=== PATIENT | female | born 1965 | race Caucasian/White ===

== ENCOUNTER 2017-04-23 13:06 | Emergency (ER) | payer BC, MEDICAID ==
[2017-04-23 13:11] VITALS: BP 161/97
[2017-04-23 14:15] LABS: Hematocrit 41 % (35-47); Mean Corpuscular HGB Conc 34 g/dl (31-36); Mean Corpuscular Hemoglobin 30 pg (27-31); Mean Corpuscular Volume 88 fL (80-97); Mean Platelet Volume 8 um3 (7.4-10.4); Red Blood Count 4.63 10^6/ul (4.0-5.4); Red Cell Distribution Width 13 % (10.5-15)
[2017-04-23 14:21] LABS: Urine Bacteria Absent (Absent); Urine Bilirubin Negative (Negative); Urine Glucose Negative (Negative); Urine Nitrite Negative (Negative)
[2017-04-23 14:31] LABS: ALT 17 U/L (7-52); AST 17 U/L (13-39); Albumin 4.3 g/dL (3.2-5.2); Alkaline Phosphatase 63 U/L (34-104); Anion Gap 6 mmol/L (2-11); BUN/Creatinine Ratio 22.2 (8-20); Blood Urea Nitrogen 20 mg/dL (6-24); CO2 Carbon Dioxide 27 mmol/L (22-32); Calcium 9.2 mg/dL (8.6-10.3); Chloride 108 mmol/L (101-111); EGFR African American 84.2 (>60); EGFR Non-African American 65.5 (>60); Glucose 95 mg/dL (70-100); Potassium 3.9 mmol/L (3.5-5.0); Sodium 141 mmol/L (133-145); Total Protein 7.3 g/dL (6.4-8.9)
[2017-04-23 14:37] LABS: Benzodiazepine Urine Screen None Detected (None Detect)
[2017-04-23 14:47] LABS: Acetaminophen < 15 mcg/mL; Alcohol < 10 mg/dL (<10); Salicylate < 2.50 mg/dL (<30)
[2017-04-23 15:04] LABS: TSH (Thyroid Stimulating Horm) 3.04 mcIU/mL (0.34-5.60)
[2017-04-23] MEDS ORDERED: oxyCODONE/Acetamin 5/325 MG* TAB PO ONE (17:41)
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
== END 2017-04-23 19:58 | disposition home or self-care (01) ==
LOC: ED 13:06
DX: F22 Delusional disorders (principal); F41.9 Anxiety disorder, unspecified; R45.5 Hostility
CPT/HCPCS: 36415; 80053; 80307; 80320; 80329; 81003; 81015; 84443; 85025; 87086; 99283; A9270-GY; G0480

== ENCOUNTER 2017-08-22 08:02 | Emergency (ER) | payer BC, MEDICAID ==
[2017-08-22 08:21] VITALS: BP 136/93
--- NOTE | 2017-08-22 08:55 | UC ---
FLU HPI - HPI Summary HPI Summary: Coughing chest congestion and burning,sinus pain fatigue, fevers and chills - History of Current Complaint Chief Complaint: UCGeneralIllness Stated Complaint: CHEST CONGESTION Time Seen by Provider: 08/22/17 08:49 Hx Obtained From: Patient Hx Last Menstrual Period: 3 MONTHS AGO - PERIMENOPAUSAL ?: No Onset/Duration: Sudden Onset, Lasting Days - 3 Severity Currently: Moderate Severity Initially: Moderate Pain Intensity: 7 Pain Scale Used: 0-10 Numeric Associated Signs & Symptoms: Positive: Fever, Myalgia, Cough, Nasal Congestion, Headache - Allergy/Home Medications Allergies/Adverse Reactions: Allergies Allergy/AdvReac Type Severity Reaction Status Date / Time bee venom protein (honey bee) Allergy Swelling Verified 08/22/17 08:12 PMH/Surg Hx/FS Hx/Imm Hx Previously Healthy: Yes - Surgical History Surgical History: Yes Surgery Procedure, Year, and Place: 1994 Tubal Ligation. Ovarian Cyst Removal - Family History Known Family History: Positive: Hypertension, Diabetes - Social History Occupation: Employed Full-time Lives: With Family Alcohol Use: Rare Substance Use Type: None Smoking Status (MU): Never Smoked Tobacco - Immunization History Most Recent Tetanus Shot: 5 YEARS AGO Review of Systems Constitutional: Chills, Fatigue Skin: Negative Eyes: Negative ENT: Nasal Discharge, Sinus Congestion, Sinus Pain/Tenderness Respiratory: Cough Cardiovascular: Chest Pain - burning with inspiration Gastrointestinal: Negative Genitourinary: Negative Motor: Negative Neurovascular: Negative Musculoskeletal: Arthralgia, Myalgia Neurological: Negative Psychological: Negative Is Patient Immunocompromised?: No All Other Systems Reviewed And Are Negative: Yes Physical Exam Triage Information Reviewed: Yes Appearance: Well-Nourished, Ill-Appearing, Pain Distress Vital Signs: Initial Vital Signs Temp 98.4 F 08/22/17 08:14 Pulse 75 08/22/17 08:14 Resp 20 08/22/17 08:14 BP 136/93 08/22/17 08:14 Pulse Ox 100 08/22/17 08:14 Vital Signs Reviewed: Yes Eye Exam: Normal Eyes: Positive: Conjunctiva Clear ENT Exam: Normal ENT: Positive: Normal ENT inspection, Hearing grossly normal, Pharynx normal, Nasal congestion, Nasal drainage, TMs normal, Uvula midline. Negative: Tonsillar swelling, Tonsillar exudate, Trismus, Muffled voice, Hoarse voice, Dental tenderness, Sinus tenderness Dental Exam: Normal Neck exam: Normal Neck: Positive: Supple, Nontender, No Lymphadenopathy Respiratory Exam: Normal Respiratory: Positive: Chest non-tender, Lungs clear, Normal breath sounds, No respiratory distress, No accessory muscle use Cardiovascular Exam: Normal Cardiovascular: Positive: RRR, No Murmur, Pulses Normal, Brisk Capillary Refill Musculoskeletal Exam: Normal Musculoskeletal: Positive: Strength Intact, ROM Intact, No Edema Neurological Exam: Normal Neurological: Positive: Alert, Muscle Tone Normal Psychological Exam: Normal Skin Exam: Normal Diagnostics - Laboratory Diagnostic Studies Completed/Ordered: Influenza A?B (-), Patient refused CXR - EKG Cardiac Rate: NL Cardiac Rhythm: Sinus: Normal Ectopy: None Flu Course/Dx - Course Course Of Treatment: feeling some relief with neb, d/c with home nebs, prednisone rest and follow with pcp - Differential Dx/Diagnosis Provider Diagnoses: Acute viral Bronchitis Discharge - Discharge Plan Condition: Stable Disposition: HOME Prescriptions: predniSONE TAB* [Deltasone TAB*] 40 mg PO DAILY 4 Days #8 tab Patient Education Materials: Upper Respiratory Infection (ED), Acute Bronchitis (ED), Viral Syndrome (ED) Forms: *Work Release Referrals: Angelic Salazar MD [Primary Care Provider] - If Needed
[2017-08-22] MEDS ORDERED: Albuterol/Ipratropium NEB.SOL* Albuterol 2.5 MG/Ipratropium 0.5 MG 3 ML INH ONE (09:06)
[2017-08-22] MEDS ORDERED: predniSONE TAB* 20 MG PO ONE (09:07)
[2017-08-22] MEDS ORDERED: Acetaminophen TAB* 325 MG PO ONE (09:07)
== END 2017-08-22 10:06 | disposition home or self-care (01) ==
LOC: UCEAST 08:02
DX: J20.8 Acute bronchitis due to other specified organisms (principal)
CPT/HCPCS: 87502; 93005; 99212; A9270-GY; G0463; J7512

== ENCOUNTER 2018-07-11 07:13 | Emergency (ER) | payer BC, MEDICAID ==
--- OUTSIDE RECORDS SUMMARY | 2018-07-11 07:17 | XMS REPORT ---
:1965 Author Organization [facility] Address [address] [place] [address] Care Team Providers Name Role Phone Sandee Davila Unavailable Unavailable PROBLEMS Type Condition ICD9-CM Code [id number] Onset Condition SNOMED Code Code Dates Status Problem Acute vaginitis N76.0 Active 53182401 Problem Pelvic and perineal R10.2 Active 991001124 pain Problem Family history of Z80.0 Active 374521675 malignant neoplasm of digestive organs Problem Postmenopausal N95.2 Active 15086373 atrophic vaginitis Problem Lichen sclerosus et L90.0 Active 91327973 atrophicus Problem Dermatitis, L30.9 Active 117237374 unspecified Problem Other fatigue R53.83 Active 31006785 Problem Family history of Z80.41 Active 151512047 malignant neoplasm of ovary Problem Subacute and N76.3 Active 855000893 chronic vulvitis Problem 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, unspecified ALLERGIES Substance Reaction Event Type Date Status clindamycin hives Drug Allergy Jun, Active ENCOUNTERS Encounter Location Date Diagnosis [facility] [address] Oct, [place] [id number] [facility] Oct, [place] [id number] [facility] [address] [place] [address] Jun, Lichen sclerosus et OBGYN [address] [place], atrophicus L90.0 ; [place] [id number] Dermatitis, unspecified L30.9 and Postmenopausal atrophic vaginitis N95.2 [facility] [address] Jun, [place] [id number] [place] [facility] [address] May, [place] [id number] [place] [facility] [address] [place] May, Subacute and chronic OBGYN [address] [place] [address], vulvitis N76.3 and Pelvic [place] [id number] and perineal pain R10.2 [place] [facility] [address] May, [place] [id number] [place] [facility] [address] [place] May, Subacute and chronic OBGYN [address] [place] [address], vulvitis N76.3 [place] [id number] [place] [facility] [address] May, [place] [id number] [place] [facility] [address] May, [place] [id number] [place] [facility] [address] Apr, Family history of OBGYN [facility], malignant neoplasm [place] [id number] ovary Z80.41 ; Pelvic and perineal pain R10.2 and Subacute and chronic vulvitis N76.3 [facility] [address] Apr, Family history of OBGYN [facility], malignant neoplasm [place] [id number] ovary Z80.41 and Pelvic and perineal pain R10.2 [place] [facility] [address] Apr, [place] [id number] [place] [facility] [address] Apr, [place] [id number] [place] [facility] [address] Apr, [place] [id number] [place] [facility] [address] [place] [address] [place] Apr, Encounter for OBGYN Road [address] [place] [address], gynecological examination [place] [id number] (general) (routine) without abnormal findings Z01.419 ; Encounter for screening mammogram for malignant neoplasm of breast Z12.31 ; Encounter for screening for malignant neoplasm of colon Z12.11 ; Family history of malignant neoplasm of digestive organs Z80.0 ; Postmenopausal atrophic vaginitis N95.2 ; Acute vaginitis N76.0 ; Other fatigue R53.83 ; Family history of malignant neoplasm of ovary Z80.41 ; Family history of ischemic heart disease and other diseases of the circulatory system Z82.49 ; Anogenital herpesviral infection, unspecified A60.9 and Pelvic and perineal pain R10.2 [place] [facility] [address] Sep, Postmenopausal atrophic OBGYN [facility], vaginitis N95.2 [place] [id number] [place] [facility] [address] [place] [address] Dec, Other specified [facility] [address] [place] [address], noninflammatory disorders [place] [id number] of vagina N89.8 and Acute vaginitis N76.0 [place] [facility] [address] Oct, [place] [id number] [place] [facility] Oct, Other specified [facility], noninflammatory disorders [place] [id number] of vagina N89.8 ; Acute vaginitis N76.0 and Postmenopausal atrophic vaginitis N95.2 [place] [facility] [address] [place] [address] [facility] Jan, Encounter for [facility] [address] [place], gynecological examination [place] [id number] (general) (routine) without abnormal findings Z01.419 ; Encounter for screening mammogram for malignant neoplasm of breast Z12.31 ; Encounter for screening for malignant neoplasm of colon Z12.11 ; Family history of malignant neoplasm of digestive organs Z80.0 ; Postmenopausal atrophic vaginitis N95.2 and Acute vaginitis N76.0 [place] [facility] [address] Dec, [place] [id number] [place] [facility] 103 Dec, Other specified [facility], noninflammatory disorders [place] [id number] of vagina N89.8 and Postmenopausal atrophic vaginitis N95.[address] Dec, [facility] [address] [place] [id number] [facility] [address] May, Acute vaginitis N76.0 [place] [id number] [address] Jan, 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10 [place] [id number] [address] Dec, Vulvovaginitis 616.10 ; [facility] [address] [place] [address], FAMILY HX-GI MALIGNANCY [place] [id number] V16.0 ; STD Screen V74.5 ; PELVIC PAIN 625.9 and Menopausal symptoms 627.2 [facility] Aug, [place] [id number] [place] [facility] [address] Aug, [place] [id number] [place] [facility] 103 Aug, Ovarian cyst NOS 620.2 [place] [id number] [place] [facility] [address] Jul, [place] [id number] [facility] Jul, [place] [id number] [facility] [address] Jul, [place] [id number] [facility] Jun, [place] [id number] [facility] Jun, Ovarian cyst NOS 620.2 and OBGYN [facility], VULVAR LESION 624.9 [place] [id number] IMMUNIZATIONS No Known Immunizations SOCIAL HISTORY Never Assessed REASON FOR REFERRAL FUNCTIONAL STATUS PLAN OF CARE Activity Details Follow Up 1 year vulvar colpo Reason: VITAL SIGNS Height 66.5 in 2018-06-22 Weight 140 lbs 2018-06-22 BMI 22.26 kg/m2 2018-06-22 Blood pressure systolic 128 mm Hg 2018-06-22 Blood pressure diastolic 76 mm Hg 2018-06-22 MEDICATIONS Medication Instructions Dosage Frequency Start End Date Duration Status Date Calcium 600+D orally qd 1 tab(s) 24h 30 day(s) Active 600 mg-200 units Estroven orally QD 1 cap 24h Active betamethasone- applied topically 1 deborah 12h 12 Oct, 7 days Active clotrimazole 2 times a day 2018 topical 0.05%-1% ibuprofen 600 orally every 6 1 tab(s) 6h Active mg hours Valtrex 500 mg orally once a day 1 tab(s) 24h 12 Apr, 30 day(s) Active 2018 Estrace intravaginally two 1 g 12 Jun, 30 days Active Vaginal 0.1 to three times a 2018 mg/g week Percocet 5/325 orally every 6 1 tab(s) 6h 30 Nov, 3 days Active 325 mg-5 mg hours 2018 clobetasol applied topically 1 deborah 11 Jun, 30 day(s) Active topical 0.05% to vulva Once 2018 weekly. Use twice a day for up to three weeks when symptomatic lidocaine applied topically 1 deborah 8h 30 May, 5 day(s) Active topical 5% 3 times a day 2018 Valtrex 500 mg orally PRN 1tab(s) Active PROCEDURES No Known procedures RESULTS No Results REASON FOR VISIT Colpo f/u Insurance Providers [facility] Health Member Patient Patient Patient Patient Patient Subscriber Subscriber Subscriber Group Insurance Plan Plan Plan Plan ID Relationship Address Phone Name Date of ID Name Date of No Type Insurance Insurance Insurance Coverage to Subscriber Address Phone Name Dates [employer] [phone] [employer] [place] [id number] Blue [id number] Blue e 7 Cross/Blue [place] Cross/Blue [facility] [id number] Shield [facility] Medicaid [phone] Medicaid self [place] [id number] [facility] [id number] [facility] [address] [facility] 0 United [phone] United self [place] [id number] [facility] [id number] [place] [phone] [facility] MEDICAL (GENERAL) HISTORY Type Description Date Medical History HSV Medical History migraines Surgical History ovarian cystectomy 2008 Surgical History ETOP x 2 Surgical History tubal ligation 1995 Hospitalization History see above Hospitalization History childbirth
--- OUTSIDE RECORDS SUMMARY | 2018-07-11 07:17 | XMS REPORT ---
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, unspecified Problem Pelvic and perineal R10.2 Active 843406339 pain Problem Family history of Z80.0 Active 729482381 malignant neoplasm of digestive organs Problem Other fatigue R53.83 Active 32758054 Problem Family history of Z80.41 Active 849648910 malignant neoplasm of ovary ALLERGIES No Information ENCOUNTERS Encounter Location Date Diagnosis [facility] [address] Oct, OBGYN [place], [place] [id number] [facility] [address] Oct, OBGYN [place], [place] [id number] [facility] Jun, [facility] [address] [place], [place] [id number] [facility] [address] Jun, OBGYN [place] [id number] [facility] [address] May, OBGYN [place] [id number] [facility] [address] May, Subacute and chronic [address]BGYN [address] [place] [address], vulvitis N76.3 and Pelvic [place] [id number] and perineal pain R10.2 [place] [facility] [address] May, OBGYN [place], [place] [id number] [place] [facility] [address] May, Subacute and chronic OBGYN [address] [place] [address], vulvitis N76.3 [place] [id number] [place] [facility] [address] May, OBGYN [place] [id number] [facility] [facility] [address] May, OBGYN [place] [id number] [place] [facility] [address] Apr, Family history of OBGYN [facility], malignant neoplasm [place] [id number] ovary Z80.41 ; Pelvic and perineal pain R10.2 and Subacute and chronic vulvitis N76.3 [place] [facility] [address] Apr, Family history of OBGYN [facility], malignant neoplasm [place] [id number] ovary Z80.41 and Pelvic and perineal pain R10.2 [place] [facility] [address] Apr, OBGYN [place] [id number] [facility] [facility] [address] Apr, OBGYN [place] [id number] [facility] [address] Apr, OBG[place] [id number] [place] [facility] [address] Apr, Encounter for OBGYN Road [address] [place], gynecological examination [place] [id number] (general) (routine) without abnormal findings Z01.419 ; [...] A60.9 and Pelvic and perineal pain R10.2 [facility] 13 Sep, 2017 Postmenopausal atrophic [facility], vaginitis N95.2 [place] [id number] [facility] Dec, Other specified [facility] [address] [place] [address], noninflammatory disorders [place] [id number] of vagina N89.8 and Acute vaginitis N76.[address] [facility] [address] Oct, [place], [place] [id number] [facility] Oct, Other specified [facility], noninflammatory disorders [place] [id number] of vagina N89.8 ; Acute vaginitis N76.0 and Postmenopausal atrophic vaginitis N95.[address] [facility] Jan, Encounter for [facility] [address], gynecological examination [place] [id number] (general) (routine) without abnormal findings Z01.419 ; Encounter for screening mammogram for malignant neoplasm of breast Z12.31 ; Encounter for screening for malignant neoplasm of colon Z12.11 ; Family history of malignant neoplasm of digestive organs Z80.0 ; Postmenopausal atrophic vaginitis N95.2 and Acute vaginitis N76.0 [facility] Dec, [place], [place] [id number] [facility] Dec, Other specified [facility], noninflammatory disorders [place] [id number] of vagina N89.8 and Postmenopausal atrophic vaginitis N95.[address] [facility] Dec, [facility] [address] [id number] 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0 ; STD Screen V74.5 ; PELVIC PAIN 625.9 and Menopausal symptoms 627.2 [place] [facility] Aug, [place] [id number] [place] [facility] 103 15 Aug, 2011 [place] [id number] [place] [facility] 103 Aug, Ovarian cyst NOS 620.2 [place] [id number] [place] [facility] 103 Jul, [place] [id number] [place] [facility] [address] Jul, [place] [id number] [place] [facility] [address] Jul, [place] [id number] [place] [facility] Jun, [place] [id number] [facility] 103 13 Jun, 2011 Ovarian cyst NOS 620.2 and OBGYN [facility], VULVAR LESION 624.9 [place] [id number] IMMUNIZATIONS No Known Immunizations SOCIAL HISTORY Never Assessed REASON FOR REFERRAL FUNCTIONAL STATUS PLAN OF CARE VITAL SIGNS MEDICATIONS Unknown Medications PROCEDURES No Known procedures RESULTS No Results REASON FOR VISIT Missing lab Insurance Providers [facility] Health Member Patient Patient Patient Patient Patient Subscriber Subscriber Subscriber Group Insurance Plan Plan Plan Plan ID Relationship Address Phone Name Date of ID Name Date of No Type Insurance Insurance Insurance Coverage to Subscriber Address Phone Name Dates United [id number] United self Maryalic [id number] [facility] [id number] [place] [phone] Amrita Excellus [address] Excellus Maryalic [id number] Blue [id number] Blue e 7 Cross/Blue [place] Cross/Blue [facility] [address] Shield Amrita Medicaid [id number] Medicaid self Maryalic [id number] [facility] 00 e [id number] [facility] [address] [facility] 0 MEDICAL (GENERAL) HISTORY Type Description Date Medical History HSV Medical History migraines Surgical History ovarian cystectomy 2008 Surgical History ETOP x 2 Surgical History tubal ligation 1995 Hospitalization History see above Hospitalization History childbirth
[2018-07-11 07:26] VITALS: BP 153/86
[2018-07-11] MEDS ORDERED: NS 0.9% 1000 ML* 1,000 ML IV SCH (07:30)
[2018-07-11] MEDS ORDERED: Ketorolac INJ* 30 MG/ML 1 ML VIAL IV PUSH ONE (07:59)
[2018-07-11] MEDS ORDERED: Ondansetron INJ* 2 MG/ML VIAL IV ONE (08:42)
[2018-07-11] MEDS ORDERED: Morphine VIAL* 10 MG/ML 1 ML VIAL IV ONE (08:42)
[2018-07-11] MEDS ORDERED: Morphine INJ* 2 MG/ML 1 ML CARPUJECT ONE (08:51)
[2018-07-11] MEDS ORDERED: Morphine INJ* 2 MG/ML 1 ML CARPUJECT IV PRN (08:56)
--- NOTE | 2018-07-11 08:56 | UC ---
Abdominal Pain Female HPI - HPI Summary HPI Summary: 6 DAYS OF WATERY DIARRHEA OCCURRING MULTIPLE TIMES DAILY. NO BLOOD. ONSET AFTER EATING QUESTIONABLE POULTRY. HAD SEVERAL EPISODES OF EMESIS INITIALLY BUT CURRENTLY DENIES ANY NAUSEA OR VOMITING. NO FEVER. STATES DIARRHEA HAS CEASED. NO BM FOR OVER 12 HOURS BUT ABDOMINAL PAIN HAS WORSENED. - History of Current Complaint Chief Complaint: UCGeneralIllness Stated Complaint: VOMITING Time Seen by Provider: 07/11/18 07:29 Hx Obtained From: Patient, Family/Ndt Inspector - Hx Last Menstrual Period: 3 MONTHS AGO - PERIMENOPAUSAL Onset/Duration: Sudden Onset, Lasting Days, Still Present Timing: Constant Severity Initially: Moderate Severity Currently: Moderate Pain Intensity: 7 Pain Scale Used: 0-10 Numeric Location: Diffuse Radiates: No Character: Sharp Aggravating Factor(s): Nothing Alleviating Factor(s): Nothing Associated Signs and Symptoms: Positive: Decreased Appetite, Vomiting, Diarrhea. Negative: Fever, Blood in Stool, Urinary Symptoms Allergies/Adverse Reactions: Allergies Allergy/AdvReac Type Severity Reaction Status Date / Time bee venom protein (honey bee) Allergy Swelling Verified 07/11/18 07:26 clindamycin Allergy Hives Verified 07/11/18 07:26 Home Medications: Home Medications Ibuprofen 2 tab PO Q6HR PRN 07/11/18 [History Confirmed 07/11/18] PMH/Surg Hx/FS Hx/Imm Hx Previously Healthy: Yes - Surgical History Surgical History: Yes Surgery Procedure, Year, and Place: 1994 Tubal Ligation. Ovarian Cyst Removal - Family History Known Family History: Positive: Hypertension, Diabetes - Social History Alcohol Use: Rare Substance Use Type: None Smoking Status (MU): Never Smoked Tobacco - Immunization History Most Recent Tetanus Shot: 5 YEARS AGO Review of Systems All Other Systems Reviewed And Are Negative: Yes Constitutional: Positive: Negative Respiratory: Positive: Negative Cardiovascular: Positive: Negative Gastrointestinal: Positive: Abdominal Pain, Vomiting, Diarrhea Genitourinary: Positive: Negative Neurological: Positive: Other - DIZZY Physical Exam Triage Information Reviewed: Yes Appearance: Well-Nourished, Pain Distress - SEVERE Vital Signs: Initial Vital Signs Temp 97.9 F 07/11/18 07:18 Pulse 62 07/11/18 07:18 Resp 21 07/11/18 07:18 BP 153/86 07/11/18 07:18 Pulse Ox 98 07/11/18 07:18 Vital Signs Reviewed: Yes Eyes: Positive: Conjunctiva Clear ENT: Positive: Hearing grossly normal Neck: Positive: Supple Respiratory Exam: Normal Cardiovascular Exam: Normal Abdomen Description: Positive: Soft, Other: - DIFFUSELY TENDER. Negative: Distended Bowel Sounds: Positive: Present Musculoskeletal: Positive: No Edema Neurological: Positive: Alert Psychological: Positive: Normal Response To Family, Age Appropriate Behavior Skin: Negative: Rashes Abd Pain Female Course/Dx - Course Course Of Treatment: PATIENT PRESENTING WITH SEVERE CRAMPY ABDOMINAL PAIN AND WATERY DIARRHEA AFTER EATING QUESTIONABLE POULTRY. 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 PATIENT REPORTS SHE HAS ACTUALLY BEEN DIARRHEA FREE FOR THE PAST 12 HOURS OR SO BUT THAT THE ABDOMINAL PAIN SEEMS TO BE WORSENING. NO FEVER. NO NAUSEA. PATIENT NOT FEELING ANY BETTER WITH IV FLUIDS AND 30 MG TORADOL. OPT FOR ER TRANSFER. 2 MG MORPHINE AND 4 MG ZOFRAN GIVEN AFTER DECISION MADE TO GO TO ER. - Differential Dx/Diagnosis Provider Diagnosis: Abdominal pain, Diarrhea - Physician Notification/Consults Discussed Care of Patient With: Janice Philip - [facility] Time Discussed With Above Provider: 08:40 Instructed by Provider To: MD Will See In ED Discharge - Sign-Out/Discharge Documenting (check all that apply): Patient Departure All imaging exams completed and their final reports reviewed: No Studies - Discharge Plan Condition: Stable Disposition: TRANS HIGHER LVL OF CARE FAC Referrals: Angelic Salazar MD [Primary Care Provider] - - Billing Disposition and Condition Condition: STABLE Disposition: Trans Higher Lvl of Care Fac
== END 2018-07-11 09:20 | disposition short-term general hospital (02) ==
LOC: UCEAST 07:13
DX: R19.7 Diarrhea, unspecified (principal); R10.9 Unspecified abdominal pain; Z88.1 Allergy status to other antibiotic agents; Z91.030 Bee allergy status
CPT/HCPCS: 96361; 96374; 96375; 99213; G0463; J1885; J2270; J2405

== ENCOUNTER 2018-07-11 09:33 | Emergency (ER) | payer BC, MEDICAID ==
--- NOTE | 2018-07-11 09:50 | ED ---
Abdominal Pain/Female - HPI Summary HPI Summary: A 52 y/o female brought in by ambulance presents to the ED c/o severe constant abdominal pain. Additionally c/o diarrhea. Currently, the patient is still experiencing abdominal pain and diarrhea as she has for the past week reaching 7 /10 in severity. Her abdominal pain is diffuse, moreso in the epigastric (" waves of spasming down"). In the ED room, the patient has a blood pressure of 202/109. According to the patient, last Wednesday (07/05/2018) she experienced diarrhea (subsided last night with last episode at 1900, no black/blood) during the day, while she had severe body aches at night coupled with a high fever. The next day, she exhibited severe abdominal pain and diarrhea "like a water faucet" with vomiting next day, but not since. She noted that she had no recent travel, been around any sickness, no medical conditions, or no history of GI issues such as ulcerative colitis and Crohns. She noted that her blood pressure is high, and it is not usually that way, except sometimes she has spikes (no medications for HBP). She further noted that she was administered Morphine at which brought down pain slightly. SHx of non-regular marijuana smoker. Home Medications Medication Instructions Recorded Confirmed Type ValACYclovir (*) [Valtrex 500 mg 500 mg PO DAILY PRN 04/23/17 07/11/18 History (*)] Ibuprofen 2 tab PO Q6HR PRN 07/11/18 07/11/18 History - History of Current Complaint Chief Complaint: EDNauseaVomitDiarrh Stated Complaint: ABD PAIN/DIARRHEA/VOMITING Time Seen by Provider: 07/11/18 09:36 Hx Obtained From: Patient Hx Last Menstrual Period: 3 MONTHS AGO - PERIMENOPAUSAL Onset/Duration: Sudden Onset, Lasting Days, Still Present Timing: Constant Severity Initially: Moderate Severity Currently: Moderate Pain Intensity: 7 Pain Scale Used: 0-10 Numeric Location: Diffuse, Epigastric - MORESO IN EPIGASTRIC AREA Radiates: No Aggravating Factor(s): Nothing Alleviating Factor(s): Other: - MORHPINE SLIGHTLY ALLEVIATED PAIN. Associated Signs and Symptoms: Positive: Vomiting, Diarrhea. Negative: Blood in Stool Allergies/Adverse Reactions: Allergies Allergy/AdvReac Type Severity Reaction Status Date / Time bee venom protein (honey bee) Allergy Swelling Verified 07/11/18 07:26 clindamycin Allergy Hives Verified 07/11/18 07:26 PMH/Surg Hx/FS Hx/Imm Hx Endocrine/Hematology History: Denies: Hx Diabetes, Hx Thyroid Disease Cardiovascular History: Denies: Hx Hypertension Respiratory History: Denies: Hx Asthma, Hx Chronic Obstructive Pulmonary Disease (COPD) GI History: Denies: Hx Ulcer Psychiatric History: Reports: Hx Eating Disorder - Bulemia as a teen, Other Psychiatric Issues/Disorders - borderline personality disorder Denies: Hx of Violent Episodes Against Others - Surgical History Surgery Procedure, Year, and Place: 1994 Tubal Ligation. Ovarian Cyst Removal Infectious Disease History: No Infectious Disease History: Denies: Hx Hepatitis, Hx Human Immunodeficiency Virus (HIV), History Other Infectious Disease, Traveled Outside the [place] in Last 30 Days - Family History Known Family History: Positive: Hypertension, Diabetes - Social History Alcohol Use: Rare Substance Use Type: Reports: None Smoking Status (MU): Never Smoked Tobacco Review of Systems Positive: Fever - RESOLVED. Positive: Abdominal Pain, Vomiting - RESOLVED, Diarrhea - RESOLVED, Other - NEGATIVE: BLOOD IN STOOL Positive: Myalgia - POSITIVE: BODY ACHES (RESOLVED) All Other Systems Reviewed And Are Negative: Yes Physical Exam - Summary Physical Exam Summary: GENERAL: Patient is a well-developed and nourished female who is lying comfortable in the stretcher. Patient is not in any acute respiratory distress. HEAD AND FACE: Normocephalic EYES: PERRLA, EOMI x 2. EARS: Hearing grossly intact. MOUTH: Oropharynx within normal limits. NECK: Supple, trachea is midline, no adenopathy, no JVD, no carotid bruit. CHEST: Symmetric, no tenderness at palpation LUNGS: Clear to auscultation bilaterally. No wheezing or crackles. CVS: Regular rate and rhythm, S1 and S2 present, no murmurs or gallops appreciated. ABDOMEN: Soft. Bowel sounds are normal. No abdominal abnormal pulsations.Tenderness to palpation diffusely, worse in the epigastric periumbilical area. EXTREMITIES: Full ROM in all major joints, no edema, no cyanosis or clubbing. NEURO: Alert and oriented x 3. No acute neurological deficits. Speech is normal and follows commands. SKIN: Dry and warm Triage Information Reviewed: Yes Vital Signs On Initial Exam: Initial Vitals Temp Pulse Resp BP Pulse Ox 97.3 F 62 16 202/109 100 07/11/18 09:34 07/11/18 09:34 07/11/18 09:34 07/11/18 09:34 07/11/18 09:34 Vital Signs Reviewed: Yes Diagnostics - Vital Signs Vital Signs Temp Pulse Resp BP Pulse Ox 07/11/18 09:34 97.3 F 62 16 202/109 100 - Laboratory Result Diagrams: 07/11/18 10:11 07/11/18 10:11 Lab Statement: Any lab studies that have been ordered have been reviewed, and results considered in the medical decision making process. - CT CT A/P CT Interpretation Completed By: Radiologist Summary of CT Findings: Question of mild diverticulitis of the sigmoid colon. Otherwise no evidence of abscess or abnormal masses are noted. ED PHYSICIAN REVIEWED THIS RADIOLOGY REPORT. Re-Evaluation - Re-Evaluation First Eval Re-Evaluation Time: 12:50 Change: Improved Comment: DISCUSSED RESULTS WITH PATIENT AND PATIENT REPORTS SHE IS FEELING MUCH BETTER. Abdominal Pain Fem Course/Dx - Course Course Of Treatment: A 52 y/o female brought in by ambulance presents to the ED c/o severe constant abdominal pain. Additionally c/o diarrhea. Currently, the patient is still experiencing abdominal pain and diarrhea as she has for the past week reaching 7/10 in severity. Her abdominal pain is diffuse, more so in the epigastric ("waves of spasming down. According to the patient, last Wednesday (07/05/2018) she experienced diarrhea (subsided last night with last episode at 1900, no black/blood) during the day, while she had severe body aches at night coupled with a high fever. The next day, she exhibited severe abdominal pain and diarrhea "like a water faucet" with vomiting next day, but not since. Physical examination findings significant for tenderness to palpation diffusely , worse in the epigastric periumbilical area. A CT A/P revealed question of mild diverticulitis of the sigmoid colon. Otherwise no evidence of abscess or abnormal masses are noted. Hematology, Chemistry, coagulation, and urinalysis screens were done. No significant laboratory abnormalities were found except low Magnesium level 1.8 mg/dL. In the ED course, the patient received Fentanyl , Omnipaque, and Reglan. During re-evaluation, I discussed results with patient and she reports feeling better. She is hemodynamically stable and safe for discharge. Strict return precautions given and she will otherwise follow up with her PCP. Patient will be discharged with a diagnosis of diverticulitis. She will be sent home with prescriptions for Cipro, Zofran, Percocet, and Flagyl , she is to take medications as prescribed. Patient is to follow up with primary care physician in 1-3 days. Patient is to return to ED for any new or worsening symptoms. Patient is agreeable with this plan. - Diagnoses Provider Diagnoses: Diverticulitis Discharge - Sign-Out/Discharge Documenting (check all that apply): Patient Departure - DISCHARGE - Discharge Plan Condition: Stable Disposition: HOME Prescriptions: Ciprofloxacin HCl [Cipro] 500 mg PO BID #20 tablet metroNIDAZOLE [Flagyl] 500 mg PO TID #30 tablet Ondansetron ODT TAB* [Zofran 4 MG Odt TAB*] 4 mg PO Q6H PRN #12 tab.odt PRN Reason: Nausea oxyCODONE/Acetamin 5/325 MG* [Percocet 5/325 TAB*] 1 tab PO Q6H PRN #12 tab MDD 4 PRN Reason: Pain Patient Education Materials: Diverticulitis (ED), Acute Abdominal Pain (ED) Referrals: Angelic Salazar MD [Primary Care Provider] - 3 Days Additional Instructions: FOLLOW UP WITH PRIMARY CARE PROVIDER IN 1-3 DAYS. TAKE MEDICATION PRESCRIBED. RETURN TO ED FOR ANY NEW OR WORSENING SYMPTOMS. - Billing Disposition and Condition Condition: STABLE Disposition: Home - Attestation Statements Document Initiated by Cathy: Yes Documenting Scribe: Nato Farr Provider For Whom Cathy is Documenting (Include Credential): Servando Sommer MD Scribtigist Attestation: Nato Venegas scribed for Servando Sommer MD on 07/11/18 at 1525. Scribe Documentation Reviewed: Yes Provider Attestation: The documentation as recorded by the Nato medrano accurately reflects the service I personally performed and the decisions made by , Servando Sommer MD Status of Scribe Document: Viewed
[2018-07-11] MEDS ORDERED: fentaNYL* 50 MCG/ML 2 ML VIAL (100 MCG VIAL) IV SLOW PU ONE ×2 (09:59→14:39)
[2018-07-11] MEDS ORDERED: Metoclopramide IV* 5 MG/ML 2 ML VIAL IV ONE (09:59)
[2018-07-11 10:12] LABS: Urine Appearance Clear; Urine Color Colorless; Urine Specific Gravity 1.002 (1.010-1.030)
[2018-07-11 10:13] LABS: Urine Bilirubin Negative (Negative); Urine Blood Negative (Negative); Urine Glucose Negative (Negative); Urine Ketones Negative (Negative); Urine Nitrite Negative (Negative); Urine Protein Negative (Negative); Urine Urobilinogen Negative (Negative)
[2018-07-11 10:37] LABS: ABS Basophils 0 10^3/ul (0-0.2); ABS Eosinophils 0.1 10^3/ul (0-0.6); ABS Lymphocytes 1.9 10^3/ul (1.0-4.8); ABS Monocytes 0.5 10^3/ul (0-0.8); ABS Neutrophils 3.1 10^3/ul (1.5-7.7); ABS Nucleated RBC 0 10^3/ul; Eosinophil % 1.9 %; Hematocrit 42 % (35-47); Hemoglobin 13.9 g/dl (12.0-16.0); Lymphocyte % 33.4 %; Mean Corpuscular HGB Conc 33 g/dl (31-36); Mean Corpuscular Hemoglobin 29 pg (27-31); Mean Corpuscular Volume 88 fL (80-97); Mean Platelet Volume 7.3 fL (7.4-10.4); Nucleated Red Blood Cells % 0.2; Platelet Count 232 10^3/ul (150-450); Red Blood Count 4.75 10^6/ul (4.00-5.40); Red Cell Distribution Width 12 % (10.5-15); White Blood Count 5.7 10^3/ul (3.5-10.8)
[2018-07-11 10:55] LABS: Albumin/Globulin Ratio 1.5 (1-3); BUN/Creatinine Ratio 14.5 (8-20); C Reactive Protein 6.91 mg/L (<8.01); Calcium 8.9 mg/dL (8.6-10.3); EGFR Non-African American 100.3 (>60); Globulin 2.7 g/dL (2-4); Magnesium 1.8 mg/dL (1.9-2.7); Potassium 4.2 mmol/L (3.5-5.0); Total Bilirubin 0.6 mg/dL (0.2-1.0); Total Protein 6.7 g/dL (6.4-8.9)
[2018-07-11] MEDS ORDERED: Iohexol 300* (CONTRAST) 10 ML SDV IV ONE (11:05)
[2018-07-11] MEDS ORDERED: metroNIDAZOLE TAB* 250 MG PO ONE (13:22)
[2018-07-11] MEDS ORDERED: Ciprofloxacin TAB* 500 MG PO ONE (13:22)
[2018-07-11 15:08] VITALS: BP 165/90
== END 2018-07-11 15:07 | disposition home or self-care (01) ==
LOC: ED 09:33
DX: K57.92 Diverticulitis of intestine, part unspecified, without perforation or abscess without bleeding (principal)
CPT/HCPCS: 36415; 74177; 80053; 81003; 83605; 83690; 83735; 85025; 85730; 86140; 96374; 96375; 99283; A9270-GY; J2765; J3010; Q9967

== ENCOUNTER 2018-09-29 08:38 | Emergency (ER) | payer BC, MEDICAID ==
[2018-09-29 08:47] VITALS: BP 151/98
--- NOTE | 2018-09-29 09:38 | UC ---
Respiratory Complaint HPI - HPI Summary HPI Summary: 52 yo WM p/w cough, SOB with exertion, minimal sputum associated with pleuritic CP and now left ear pain x 4- 5 days, worsening, denies f/c - History of Current Complaint Chief Complaint: UCRespiratory Stated Complaint: COUGH,CONGESTION Time Seen by Provider: 09/29/18 09:30 Hx Obtained From: Patient Hx Last Menstrual Period: 2018 ?: No Onset/Duration: Lasting Days Severity Initially: Moderate Severity Currently: Moderate Pain Intensity: 6 Character: Cough: Productive Alleviating Factors: Bronchodilator Associated Signs And Symptoms: Positive: Dyspnea. Negative: Wheezing, Hemoptysis - Allergies/Home Medications Allergies/Adverse Reactions: Allergies Allergy/AdvReac Type Severity Reaction Status Date / Time bee venom protein (honey bee) Allergy Swelling Verified 09/29/18 08:47 clindamycin Allergy Hives Verified 09/29/18 08:47 PMH/Surg Hx/FS Hx/Imm Hx Previously Healthy: Yes - Surgical History Surgical History: Yes Surgery Procedure, Year, and Place: 1994 Tubal Ligation, tonsillectomy. Ovarian Cyst Removal - Family History Known Family History: Positive: Hypertension, Diabetes - Social History Alcohol Use: Rare Alcohol Amount: more recently do to holidays Substance Use Type: None Smoking Status (MU): Never Smoked Tobacco - Immunization History Most Recent Tetanus Shot: 5 YEARS AGO Review of Systems All Other Systems Reviewed And Are Negative: Yes - Comments Additional Review of Systems Comments: Constitutional: Negative Skin: Negative Eyes: Negative ENT: Negative Cardiovascular: Negative Respiratory: See HPI Gastrointestinal: Negative Genitourinary: Negative Musculoskeletal: Negative Neurological: Negative Psychological: Normal All Other Systems Reviewed And Are Negative: Yes Physical Exam - Summary Physical Exam Summary: Vital Signs Reviewed: Yes Appearance: Positive: No Pain Distress Skin: Positive: Warm Head/Face: Positive: Normal Head/Face Inspection Eyes: Positive: Normal ENT: Positive: L post-auricular LN tenderness, no effusion behind left TM Neck: Positive: Supple Respiratory/Lung Sounds: Positive: DIFFUSE Rhonchi, NEG Wheezes Cardiovascular: Positive: Normal, RRR, S1, S2 Abdomen Description: Positive: Nontender Musculoskeletal: Positive: Normal Neurological: Positive: Normal, CN Intact II-III Psychiatric: Positive: Normal, Affect/Mood Appropriate Triage Information Reviewed: Yes Vital Signs: Initial Vital Signs Temp 36.9 C 09/29/18 08:42 Pulse 65 09/29/18 08:42 Resp 16 09/29/18 08:42 BP 151/98 09/29/18 08:42 Pulse Ox 100 09/29/18 08:42 Respiratory Course/Dx - Differential Dx/Diagnosis Provider Diagnosis: Bronchitis, LOM (left otitis media) Discharge - Sign-Out/Discharge Documenting (check all that apply): Patient Departure All imaging exams completed and their final reports reviewed: No Studies - Discharge Plan Condition: Stable Disposition: HOME Prescriptions: Cefuroxime 500 MG(NF) 500 mg PO BID 7 Days #14 tab Guaifenesin/Dextromethorphan [Mucinex Dm ER 600-30 mg Tablet] 1 each PO BID 5 Days #10 tab.er.12h Patient Education Materials: Acute Bronchitis (ED) Referrals: Angelic Salazar MD [Primary Care Provider] - - Billing Disposition and Condition Condition: STABLE Disposition: Home
== END 2018-09-29 09:44 | disposition home or self-care (01) ==
LOC: UCEAST 08:38
DX: J40 Bronchitis, not specified as acute or chronic (principal); H66.92 Otitis media, unspecified, left ear; Z88.1 Allergy status to other antibiotic agents; Z91.030 Bee allergy status
CPT/HCPCS: 99212; G0463

== ENCOUNTER 2019-06-02 10:26 | Emergency (ER) | payer BC, MEDICAID ==
--- OUTSIDE RECORDS SUMMARY | 2019-06-02 10:36 | XMS REPORT | Summary of Care ---
:1965 Author Organization [facility] Address [address] [address] Care Team Providers Name Role Phone Angelic Salazar MD Primary Care Provider Reason for Visit Reason Comments Follow Up Right thumb pain. Patient had a Depo 40mg injection 12/14/2018 with improvement. Patient would like another injection today. Encounter Details Date Type Department Care Team Description 06/02/2019 Office Visit [facility] - Salma Arce, Trigger finger of Vernalis RPA-C right thumb (Primary [address]) [address] [place] [address] [place] [address] [phone] Allergies Active Allergy Reactions Severity Noted Date Comments Bee Anaphylaxis 08/18/2016 Clindamycin Phosphate Rash 03/13/2016 documented as of this encounter (statuses as of 06/02/2019) Medications Medication Sig Dispensed Refills Start Date End Date Status sumatriptan Inject 0.5 mL 9 Syringe 3 01/21/2016 Active (IMITREX) 6 beneath the skin MG/0.5ML DAILY NEEDED Subcutaneous (Migraine). SolutionIndication s: Migraine without aura and with status migrainosus, not intractable EPINEPHrine 0.3 1 Each by 0 Active MG/0.3ML Injection Injection route Solution NEEDED. Auto-injector valacyclovir Take 1 Tab by 90 Tab 1 03/31/2017 Active (VALTREX) 500 MG mouth DAILY. Oral Tab IBUPROFEN 200 PO Take 400 mg by 0 Active mouth NEEDED. albuterol HFA Take 2 Puffs by 1 Inhaler 5 10/07/2018 Active (VENTOLIN) 108 (90 inhalation EVERY Base) MCG/ACT FOUR HOURS Inhalation Aero NEEDED (short of Soln breath). OXYcodone-acetamin Take 1 Tab by 90 Tab 0 06/17/2017 Discontinued ophen (PERCOCET) mouth EVERY SIX 9 10-325 MG Oral Tab HOURS NEEDED for Pain. Max Daily Amount: 4 Tabs. Hospital, Clinic, or Other Ordered Dose Route Frequency Start Date End Date Status Facility Administered Medication methylPREDNISolone acetate 40 mg IM NOW 06/02/2019 06/02/2019 Ended (DEPO-MEDROL) injection 40 MG/MLIndications: Trigger finger of right thumb documented as of this encounter (statuses as of 06/02/2019) Active Problems Problem Noted Date Migraine headache 09/15/2007 Allergic Rhinitis 09/15/2007 documented as of this encounter (statuses as of 06/02/2019) Resolved Problems Problem Noted Date Resolved Date Depression 09/15/2007 04/04/2012 Benign neoplasm of colon 09/15/2007 04/04/2012 documented as of this encounter (statuses as of 06/02/2019) Immunizations Name Administration Dates Next Due Hepatitis A Vaccine-Adult 08/15/2018 Influenza (IM) Preservative Free 05/17/2017 Solu Medrol (40 mg) 04/02/2008 documented as of this encounter Social History Tobacco Use Types Packs/Day Years Used Date Never Smoker Smokeless Tobacco: Never Used Alcohol Use Drinks/Week oz/Week Comments Yes 1 Glasses of wine 1.0 socially Sex Assigned at Date Recorded Not on file Job Start Date Occupation Industry Not on file Not on file Not on file Travel History Travel Start Travel End No recent travel history available. documented as of this encounter Last Filed Vital Signs Vital Sign Reading Time Taken Comments Blood Pressure 176/112 06/02/2019 8:35 AM EST Pulse 71 06/02/2019 8:35 AM EST Temperature - - Respiratory Rate - - Oxygen Saturation - - Inhaled Oxygen Concentration - - Weight 63 kg (139 lb) 06/02/2019 8:35 AM EST Height 170.2 cm (5' 7") 06/02/2019 8:35 AM EST Body Mass Index 21.77 06/02/2019 8:35 AM EST documented in this encounter Progress Notes Salma Arce, [facility]-Devendra - 06/02/2019 8:45 AM EST PATIENT: Criselda Garza : 1965 DATE OF SERVICE: 06/02/2019 Chief Complaint Patient presents with Follow Up Right thumb pain. Patient had a Depo 40mg injection 12/14/2018 with improvement. Patient would like another injection today. SUBJECTIVE: Criselda Garza is a 53-y.o. female who presents for a follow up of her right thumb pain. States over all doing well. Saw Dr. Monte in December and had a trigger thumb injection. States helped for a while, but triggering has returned. Interested in another. Past Medical History: Diagnosis Date Allergic Rhinitis 09/15/2007 Benign neoplasm of colon 09/15/2007 Depression 09/15/2007 Herpes genitalia controlled with valtrex Migraine Headache 09/15/2007 Postmenopausal Family History Problem Relation Age of Onset Diabetes Mother Cancer Mother thyroid CA in mother/ maternal aunts/ maternal grandmother. High Cholesterol Mother Hypertension Mother Thyroid Disease Mother Clarita Heart Maternal Grandfather age 52 Heart Paternal Grandfather age 55 Ovarian Cancer Maternal Aunt Thyroid Disease Maternal Aunt clarita Ovarian Cancer Maternal Grandmother Thyroid Disease Maternal Grandmother clarita Cancer Father mesothelioma No Known Problems Sister No Known Problems Brother Thyroid Disease Daughter Clarita Hypertension Sister No Known Problems Son Current Outpatient Medications Medication Sig albuterol HFA (VENTOLIN) 108 (90 Base) MCG/ACT Inhalation Aero Soln Take 2 Puffs by inhalation EVERY FOUR HOURS NEEDED (short of breath). EPINEPHrine 0.3 MG/0.3ML Injection Solution Auto-injector 1 Each by Injection route NEEDED. IBUPROFEN 200 PO Take 400 mg by mouth NEEDED. sumatriptan (IMITREX) 6 MG/0.5ML Subcutaneous Solution Inject 0.5 mL beneath the skin DAILY NEEDED (Migraine). valacyclovir (VALTREX) 500 MG Oral Tab Take 1 Tab by mouth DAILY. No current facility-administered medications for this visit. Allergies Allergen Reactions Bee Anaphylaxis Clindamycin Phosphate Rash Social History Socioeconomic History Marital status: Spouse name: Not on file Number of children: Not on file Years of education: Not on file Highest education level: Not on file Occupational History Not on file Social Needs Financial resource strain: Not on file Food insecurity: Worry: Not on file Inability: Not on file Transportation needs: Medical: Not on file Non-medical: Not on file Tobacco Use Smoking status: Never Smoker Smokeless tobacco: Never Used Substance and Sexual Activity Alcohol use: Yes Alcohol/week: 1.0 standard drinks Types: 1 Glasses of wine per week Comment: socially Drug use: No Sexual activity: Yes Partners: Male control/protection: Surgical Lifestyle Physical activity: Days per week: Not on file Minutes per session: Not on file Stress: Not on file Relationships Social connections: Talks on phone: Not on file Gets together: Not on file Attends sikhism service: Not on file Active member of club or organization: Not on file Attends meetings of clubs or organizations: Not on file Relationship status: Not on file Intimate partner violence: Fear of current or ex partner: Not on file Emotionally abused: Not on file Physically abused: Not on file Forced sexual activity: Not on file Other Topics Concern Back Care Not Asked Bike Helmet Not Asked Blood Transfusions No Caffeine Concern Not Asked Exercise Yes Comment: 5x/week running/walking Hobby Hazards Not Asked International Travel Not Asked Service Not Asked Occupational Exposure Not Asked Seat Belt Not Asked Self-Exams Not Asked Sleep Concern Not Asked Special Diet Not Asked Stress Concern Not Asked Weight Concern Not Asked Social History Narrative . 2 children 1 son 1 daughter. 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 No skin care, facials Pets: 2 dogs/ 4 cats. No birds. OBJECTIVE: BP (!) 176/112 | Pulse 71 | Ht 5' 7" (1.702 m) | Wt 139 lb (63 kg) | LMP | BMI 21.77kg/m right Skin: Intact Swelling: absent. Joint deformity: absent. Wrist range of motion: normal flexion. normal extension. normal rotation. normal pronation. normal supination. Finger range of motion: decreased flexion. normal extension. Vamp Strap Ironer strength is full. NV intact to the right upper extremity. ASSESSMENT: Right trigger thumb PLAN: The patient was advised of the material risks and benefits of a intraarticular depomedrol injection and verbal informed consent was obtained. The skin was prepped with an betadine sponge and theright A 1 renato was injected with 40 mg of Depo-medrol and 1 cc 1 % lidocaine . She tolerated the injection well with no associated complications. A band aid was applied to the injection site. Possible side effects were discussed as was the use of ice and over the counter Tylenol or ibuprofen for post injection discomfort. she was given the post injection sheet. follow up as needed. Author: JENSEN Turner 06/02/2019 08:44 documented in this encounter Plan of Treatment Name Type Priority Associated Diagnoses Order Schedule JOINT INJECTION SMALL Procedures Routine Trigger finger of right Ordered: 06/02/2019 JOINT OR BURSA thumb Health Maintenance Due Date Last Done Comments PNEUMOCOCCAL 0-64 YRS (1 of 09/30/1969 1 - PPSV23) ZOSTER IMMUNIZATION SERIES 09/30/2013 (1 of 2) DEPRESSION SCREENING 12/10/2019 12/09/2018 MAMMOGRAM (SCREENING) 02/06/2021 02/06/2019, 07/03/2016, 12/13/2013, Additional history exists LIPID DISORDER SCREENING 06/06/2023 06/06/2018, 10/13/2017, 08/06/2016, Additional history exists Colonoscopy 08/18/2025 08/18/2016, 11/09/2013 HPV IMMUNIZATION SERIES Aged Out No longer eligible based on patient's age to complete this topic MENINGOCOCCAL VACCINE IMM Aged Out No longer eligible based on patient's age to complete this topic documented as of this encounter Results Not on filedocumented in this encounter Visit Diagnoses Diagnosis Trigger finger of right thumb - Primary documented in this encounter Administered Medications Medication Order MAR Action Action Date Dose Rate Site methylPREDNISolone acetate Given 06/02/2019 9:00 AM 40 mg Finger (DEPO-MEDROL) injection 40 MG/ML EST 40 mg, Intramuscular, NOW, 1 dose, Wed06/02/19 at 0900 documented in this encounter Insurance Payer Benefit Plan / Subscriber ID Effective Dates Phone Address Type Group [employer] [facility] xxxxxxxxxxxx 2014-Present [employer] [place] xxxxxxxx 2016-Present Medicaid [place] MEDICAID Guarantor Name Account Type Relation to Date of Phone Billing Address Patient HemaomerMitzi Crowe Personal/Famil [address] [phone] [place], [place] (Work) [id number] documented as of this encounter
--- NOTE | 2019-06-02 10:43 | ED ---
Hypertension - HPI Summary HPI Summary: The patient is a 53 y/o F presenting to [facility] with a chief complaint of PCPs concern for new onset hypertensive episode this morning. She reports that she had gone to her orthopedist this morning for a Cortisone shot, when it was found that her blood pressure was elevated. She was advised to go to her PCPs office, Dr. Salazar, who found her blood pressure to be 176/112 mmHg, warranting the recommendation for her to come here. While she does not have a history of HTN, she has had hypertensive episodes in the past, but she does not take any medications for it. She states that she had been anxious throughout the last day, and she additionally has been experiencing nausea, lightheadedness , head pressure but not a headache, as well as chest pressure which she describes as similar to chest congestion. All of these symptoms have been very mild rated 2/10 in severity. She denies any blurred vision or other visual changes. No PMHx. FHx: HTN, DM. Nonsmoker, rare EtOH, no substance use. Medications reviewed. Allergies noted. - History of Current Complaint Stated Complaint: HYPERTENSION PER PT Hx Obtained From: Patient Hx Last Menstrual Period: 2017 Onset/Duration: Started Hours Ago Timing: Lasting Hours Reported Blood Pressure Prior To Arrival: 176/112 mmHg Aggravating Factor(s): Nothing - possibly secondary to anxiety Alleviating Factor(s): Nothing Associated Signs & Symptoms: Anxiety/Stress, Other: - Postiive: chest pressure, head pressure, lightheadedness, nausea; Negative: visual changes, headache - Allergies/Home Medications Allergies/Adverse Reactions: Allergies Allergy/AdvReac Type Severity Reaction Status Date / Time bee venom protein (honey bee) Allergy Swelling Verified 06/02/19 10:35 clindamycin Allergy Hives Verified 06/02/19 10:35 Home Medications: Home Medications Biotin 1 mg PO DAILY 06/02/19 [History Confirmed 06/02/19] Cholecalciferol TAB* [Vitamin D TAB*] 1,000 unit PO DAILY 06/02/19 [History Confirmed 06/02/19] Vitamin B Complex TAB* [B Complex-50*] 1 tab PO DAILY 06/02/19 [History Confirmed 06/02/19] PMH/Surg Hx/FS Hx/Imm Hx Endocrine/Hematology History: Denies: Hx Diabetes, Hx Thyroid Disease Cardiovascular History: Denies: Hx Hypertension Respiratory History: Denies: Hx Asthma, Hx Chronic Obstructive Pulmonary Disease (COPD) GI History: Denies: Hx Ulcer History: Denies: Hx Renal Disease Psychiatric History: Reports: Hx Eating Disorder - Bulemia as a teen, Other Psychiatric Issues/Disorders - borderline personality disorder Denies: Hx of Violent Episodes Against Others - Surgical History Surgical History: Yes Surgery Procedure, Year, and Place: 1994 Tubal Ligation, tonsillectomy. Ovarian Cyst Removal Infectious Disease History: No Infectious Disease History: Denies: Hx Hepatitis, Hx Human Immunodeficiency Virus (HIV), History Other Infectious Disease, Traveled Outside the [place] in Last 30 Days - Family History Known Family History: Positive: Hypertension, Diabetes - Social History Alcohol Use: Rare Alcohol Amount: more recently do to holidays Hx Substance Use: No Substance Use Type: Reports: None Hx Tobacco Use: No Smoking Status (MU): Never Smoked Tobacco Review of Systems Negative: Blurred Vision Positive: Other - chest pressure similar to sensation of chest congestion Positive: Nausea Neurological: Other - lightheadedness, head pressure Negative: Headache Positive: Anxious All Other Systems Reviewed And Are Negative: Yes Physical Exam - Summary Physical Exam Summary: VITAL SIGNS: Reviewed. GENERAL: Patient is a well-developed and nourished female who is lying comfortable in the stretcher. Patient is not in any acute respiratory distress. HEAD AND FACE: No signs of trauma. No ecchymosis, hematomas or skull depressions. No sinus tenderness. EYES: PERRLA, EOMI x 2, No injected conjunctiva, no nystagmus. EARS: Hearing grossly intact. Ear canals and tympanic membranes are within normal limits. MOUTH: Oropharynx within normal limits. NECK: Supple, trachea is midline, no adenopathy, no JVD, no carotid bruit, no c- spine tenderness, neck with full ROM. CHEST: Symmetric, no tenderness at palpation. LUNGS: Clear to auscultation bilaterally. No wheezing or crackles. CVS: Regular rate and rhythm, S1 and S2 present, no murmurs or gallops appreciated. ABDOMEN: Soft, non-tender. No signs of distention. No rebound, no guarding, and no masses palpated. Bowel sounds are normal. EXTREMITIES: FROM in all major joints, no edema, no cyanosis or clubbing. NEURO: Alert and oriented x 3. No acute neurological deficits. Speech is normal and follows commands. SKIN: Dry and warm. Triage Information Reviewed: Yes Vital Signs On Initial Exam: Initial Vitals Temp Pulse Resp BP Pulse Ox 97.3 F 61 19 192/95 100 06/02/19 10:30 06/02/19 10:30 06/02/19 10:30 06/02/19 10:30 06/02/19 10:30 Vital Signs Reviewed: Yes Procedures - Sedation Patient Received Moderate/Deep Sedation with Procedure: No Diagnostics - Vital Signs Vital Signs Temp Pulse Resp BP Pulse Ox 06/02/19 10:30 97.3 F 61 19 192/95 100 - Laboratory Result Diagrams: 06/02/19 10:55 06/02/19 10:55 Lab Statement: Any lab studies that have been ordered have been reviewed, and results considered in the medical decision making process. - Radiology Chest X-ray Radiology Interpretation Completed By: Radiologist Summary of Radiographic Findings: Impression: No active cardiopulmonary disease is noted. ED physician has reviewed this report. - EKG 1027 Cardiac Rate: NL - 64 BPM EKG Rhythm: Sinus Rhythm EKG Comparison: No Significant Change - Similar to previous EKGs taken at 0931 today 06/02/19, and 07/31/16. Summary of EKG Findings: EKG at 1027 reveals normal sinus rhythm at 64 BPM. Normal axis. No ST elevations. ED physician has reviewed and interpreted this EKG. Re-Evaluation - Re-Evaluation First Eval Re-Evaluation Time: 11:05 Change: Unchanged Comment: Patient's blood pressure is 171/110 mmHg, per nurse Sebastián. We will administer Labetalol. Second Eval Re-Evaluation Time: 12:15 Change: Improved Comment: Patient's blood pressure has improved with medication. We discussed all findings and plan for discharge with medication and follow up with her PCP. Hypertension Course/Dx - Course Assessment/Plan: This patient is a 53-year-old female who presents to the emergency department with a chief complaint of having some chest discomfort and increased blood pressure. The patient was found to be high at the doctors office. Therefore, she was directed to the emergency department. Blood work without any significant abnormality. Urinalysis is negative for UTI. EKG shows a normal sinus rhythm without any ST elevations. In the ED course, the patient was given labetalol 20 mg IV. I discussed the case with Dr. Salazar (PCP) and she recommends starting the patient on amlodipine 5 mg a day. Heart score is equal to 1. Therefore, there is low suspicion for an acute coronary syndrome. The patient is not tachycardic or hypoxic; therefore, there is no suspicion for PE. The Wells criteria is equal to 0. I discussed all the findings and test results with the patient. Patient was instructed to return to the emergency room immediately if any of the symptoms return worsens. Plan of care was discussed with the patient and understands and agrees. All questions were answered at patient satisfaction. There were no further complaints or concerns. Lung exam before discharge: CTA B/L. Good air exchange. No wheezing or crackles heard. CVS: S1 and S2 present. No murmurs appreciated. Patient is alert and oriented x 3. Patient is hemodynamically stable. Patient will be discharged home with follow up PCP in the next 2-3 days. - Diagnoses Differential Diagnosis/HQI PQRI: Angina, Hypertension, Hypertensive Crisis, Hypertensive Urgency, Myocardial Infarction Provider Diagnoses: High blood pressure, Chest pain - Physician Notifications Discussed Care Of Patient With: Angelic Salazar - patient's PCP Time Discussed With Above Provider: 12:10 Instructed by Provider To: Other - I discussed the patient's workup with Dr. Salazar since she recommended the patient come here today. She agrees with starting hypertensive medication Amlodipine, and she will see the patient in her office. Discharge ED - Sign-Out/Discharge Documenting (check all that apply): Patient Departure - Patient will be discharged home. - Discharge Plan Condition: Stable Disposition: HOME Prescriptions: amLODIPine TAB* [Norvasc 5 mg TAB*] 5 mg PO DAILY #30 tab Patient Education Materials: Hypertension (ED) Referrals: Angelic Salazar MD [Primary Care Provider] - 3 Days Additional Instructions: Please take medication as prescribed. Follow up with your primary care provider in 2-3 days for the high blood pressure you have been experiencing today. Return to the emergency department for any new or worsening symptoms. - Billing Disposition and Condition Condition: STABLE Disposition: Home - Attestation Statements Document Initiated by Alxeaibtigist: Yes Documenting Scribe: Melanie Umanzor Provider For Whom Cathy is Documenting (Include Credential): Dr. Vinod Winkler MD Scribtigist Attestation: Melanie Venegas, scribed for Dr. Vinod Winkler MD on 06/03/19 at 1149. Scribe Documentation Reviewed: Yes Provider Attestation: The documentation as recorded by the scribe, Melanie Umanzor accurately reflects the service I personally performed and the decisions made by me, Dr. Vinod Winkler MD Status of Scribe Document: Viewed
[2019-06-02] MEDS ORDERED: Labetalol IV* 5 MG/ML 20 ML VIAL IV PUSH ONE (11:05)
[2019-06-02 11:12] LABS: ABS Eosinophils 0.2 10^3/ul (0-0.6); ABS Lymphocytes 2.1 10^3/ul (1.0-4.8); ABS Monocytes 0.7 10^3/ul (0-0.8); ABS Neutrophils 4.6 10^3/ul (1.5-7.7); Eosinophil % 2.1 %; Hematocrit 45 % (35-47); Hemoglobin 15.1 g/dL (12.0-16.0); Mean Corpuscular HGB Conc 34 g/dL (31-36); Mean Corpuscular Hemoglobin 30 pg (27-31); Mean Corpuscular Volume 88 fL (80-97); Mean Platelet Volume 7.7 fL (7.4-10.4); Nucleated Red Blood Cells % 0.1; Platelet Count 231 10^3/uL (150-450); Red Blood Count 5.06 10^6 /uL (3.70-4.87); Red Cell Distribution Width 13 % (10-15); White Blood Count 7.5 10^3/uL (3.5-10.8)
[2019-06-02 11:15] LABS: Urine Appearance Cloudy; Urine Bilirubin Negative (Negative); Urine Blood Negative (Negative); Urine Color Yellow; Urine Glucose Negative (Negative); Urine Ketones Negative (Negative); Urine Nitrite Negative (Negative); Urine Protein Negative (Negative); Urine Specific Gravity 1.021 (1.010-1.030); Urine Urobilinogen Negative (Negative)
[2019-06-02 11:40] LABS: Albumin 4.9 g/dL (3.2-5.2); Albumin/Globulin Ratio 1.5 (1-3); BUN/Creatinine Ratio 16.5 (8-20); Calcium 9.9 mg/dL (8.6-10.3); EGFR African American 91.4 (>60); EGFR Non-African American 75.6 (>60); Globulin 3.3 g/dL (2-4); Potassium 3.7 mmol/L (3.5-5.0); Total Bilirubin 0.6 mg/dL (0.2-1.0); Total Protein 8.2 g/dL (6.4-8.9)
[2019-06-02] MEDS ORDERED: amLODIPine TAB* 5 MG PO ONE (12:15)
[2019-06-02 12:25] VITALS: BP 168/98
== END 2019-06-02 12:27 | disposition home or self-care (01) ==
LOC: ED 10:26
DX: R07.89 Other chest pain (principal); R03.0 Elevated blood-pressure reading, without diagnosis of hypertension; R11.0 Nausea; R42 Dizziness and giddiness; Z88.1 Allergy status to other antibiotic agents; Z91.030 Bee allergy status
CPT/HCPCS: 36415; 71045; 80053; 81003; 84484; 85025; 93005; 96374; 99283; A9270-GY

== ENCOUNTER 2019-09-02 12:56 | Emergency (ER) | payer BC, MEDICAID ==
[2019-09-02] MEDS ORDERED: NS 0.9% 1000 ML** 1,000 ML IV ONE (13:03)
[2019-09-02] MEDS ORDERED: Ondansetron INJ* 2 MG/ML VIAL IV ONE (13:03)
--- NOTE | 2019-09-02 13:07 | ED ---
Complex/Multi-Sys Presentation - HPI Summary HPI Summary: Patient is a 53 y/o F presenting to [facility] via EMS with complaints of dizziness, nausea, upper sternum chest pressure, SOB, JOHNSON, body aches, ear ache, fatigue, and cold sweats. Patient states that she had flu-like Sx yesterday and experienced onset of SOB, CP, dizziness, and nausea this morning. EMS was called ; 324 ASA was administered, 12 lead EKG was non-diagnostic for STEMI, NSR of 68 BPM, patient was 99% o2 saturation on RA, BG was 89 on fingerstick. Patient denies abdominal pain, vomiting, dysuria, cough, sore throat, pain/swelling in legs. She notes some loose stool this morning but denies diarrhea. Patient states that she had a hypertensive episode in May 2019 and felt a similar upper sternum chest pressure at the time. She is currently on Norvasc, patient measured her BP to be 140s systolic and high 80s diastolic this morning; this is characterized as abnormally elevated by the patient. Dizziness is described as a room-spinning sensation. Dizziness is still present but SOB has resolved. No Hx of diabetes, cardiac disease noted. Home medications and allergies are reviewed. Home Medications Medication Instructions Recorded Confirmed Type Biotin 1 mg PO DAILY 06/02/19 06/02/19 History Cholecalciferol TAB* [Vitamin D 1,000 unit PO DAILY 06/02/19 06/02/19 History TAB*] Vitamin B Complex TAB* [B 1 tab PO DAILY 06/02/19 06/02/19 History Complex-50*] amLODIPine TAB* [Norvasc 5 mg TAB*] 5 mg PO DAILY #30 tab 06/02/19 Rx - History Of Current Complaint Hx Obtained From: Patient Onset/Duration: Lasting Hours Timing: Hours Location: Pain At: - chest, ear, head, diffuse body aches Character: Pressure Associated Signs And Symptoms: Positive: Dizziness, Headache, SOB, Chest Pain, Nausea, Other - positive - body aches, ear ache, fatigue, cold sweats; negative - sore throat, pain/swelling in legs. Negative: Cough, Vomiting, Diarrhea, Abdominal Pain, Dysuria - Allergies/Home Medications Allergies/Adverse Reactions: Allergies Allergy/AdvReac Type Severity Reaction Status Date / Time bee venom protein (honey bee) Allergy Swelling Verified 09/02/19 13:18 clindamycin Allergy Hives Verified 09/02/19 13:18 Home Medications: Home Medications Biotin 1 mg PO DAILY 06/02/19 [History Confirmed 09/02/19] Cholecalciferol TAB* [Vitamin D TAB*] 1,000 unit PO DAILY 06/02/19 [History Confirmed 09/02/19] Vitamin B Complex TAB* [B Complex-50*] 1 tab PO DAILY 06/02/19 [History Confirmed 09/02/19] amLODIPine TAB* [Norvasc 5 mg TAB*] 5 mg PO DAILY #30 tab 06/02/19 [Rx Confirmed 09/02/19] PMH/Surg Hx/FS Hx/Imm Hx Endocrine/Hematology History: Denies: Hx Diabetes, Hx Thyroid Disease Cardiovascular History: Denies: Hx Hypertension Respiratory History: Denies: Hx Asthma, Hx Chronic Obstructive Pulmonary Disease (COPD) GI History: Denies: Hx Ulcer History: Denies: Hx Renal Disease Psychiatric History: Reports: Hx Eating Disorder - Bulemia as a teen, Other Psychiatric Issues/Disorders - borderline personality disorder Denies: Hx of Violent Episodes Against Others - Surgical History Surgery Procedure, Year, and Place: 1994 Tubal Ligation, tonsillectomy. Ovarian Cyst Removal Infectious Disease History: Denies: Hx Hepatitis, Hx Human Immunodeficiency Virus (HIV), History Other Infectious Disease - Family History Known Family History: Positive: Hypertension, Diabetes - Social History Alcohol Use: Rare Alcohol Amount: more recently do to holidays Hx Substance Use: No Substance Use Type: Reports: None Hx Tobacco Use: No Smoking Status (MU): Never Smoked Tobacco Review of Systems Constitutional: Other - positive - cold sweats Positive: Fatigue Positive: Ear Ache. Negative: Sore Throat Positive: Chest Pain Positive: Shortness Of Breath. Negative: Cough Positive: Nausea. Negative: Abdominal Pain, Vomiting, Diarrhea - but has loose stools Negative: dysuria Musculoskeletal: Other - negative - pain/swelling in legs Positive: Myalgia - body aches Neurological/Mental Status: Other - positive - dizziness Positive: Headache All Other Systems Reviewed And Are Negative: Yes Physical Exam - Summary Physical Exam Summary: Constitutional: Well-developed, Well-nourished, Alert. (-) Distressed Skin: Warm, Dry HENT: Normocephalic; Atraumatic Eyes: Conjunctiva normal Neck: Musculoskeletal ROM normal neck. (-) JVD, (-) Stridor, (-) Tracheal deviation Cardio: Rhythm regular, rate normal, Heart sounds normal; Intact distal pulses; The pedal pulses are 2+ and symmetric. Radial pulses are 2+ and symmetric. (-) Murmur Pulmonary/Chest wall: Effort normal. (-) Respiratory distress, (-) Wheezes, (-) Rales Abd: Soft, (-) tenderness, (-) Distension, (-) Guarding, (-) Rebound Musculoskeletal: (-) Edema Lymph: (-) Cervical adenopathy Neuro: Alert, Oriented x3 Psych: Mood and affect Normal Triage Information Reviewed: Yes Vital Signs Reviewed: Yes Procedures - Sedation Patient Received Moderate/Deep Sedation with Procedure: No Diagnostics - Laboratory Result Diagrams: 09/02/19 13:16 09/02/19 13:16 Lab Statement: Any lab studies that have been ordered have been reviewed, and results considered in the medical decision making process. - EKG 1312 Cardiac Rate: NL - rate of 66 BPM EKG Rhythm: Sinus Rhythm Summary of EKG Findings: EKG showed NSR with rate of 66 BPM, no STEMI. ED physician has reviewed and interpreted this EKG. Complex Multi-Symp Course/Dx Course Of Treatment: Patient is a 53 y/o F presenting to [facility] via EMS with complaints of dizziness, nausea, upper sternum chest pressure, SOB, JOHNSON, body aches, ear ache, fatigue, and cold sweats. Patient states that she had flu-like Sx yesterday and experienced onset of SOB, CP, dizziness, and nausea this morning. EMS was called; 324 ASA was administered, 12 lead EKG was non- diagnostic for STEMI, NSR of 68 BPM, patient was 99% o2 saturation on RA, BG was 89 on fingerstick. Patient denies abdominal pain, vomiting, dysuria, cough, sore throat, pain/swelling in legs. She notes some loose stool this morning but denies diarrhea. Patient states that she had a hypertensive episode in May 2019 and felt a similar upper sternum chest pressure at the time. She is currently on Norvasc, patient measured her BP to be 140s systolic and high 80s diastolic this morning; this is characterized as abnormally elevated by the patient. Dizziness is described as a room-spinning sensation. Dizziness is still present but SOB has resolved. No Hx of diabetes, cardiac disease noted. Physical exam is unremarkable. EKG showed NSR with rate of 66 BPM, no STEMI. UA was negative. Influenza A and B were negative. Bloodwork was within normal limits with exception of carbon dioxide 18 and BUN/creatinine ratio 21.7. First trop was negative. During ED course, patient received zofran 4 mg IV and fluids. Second troponin was negative. Patient was discharged to home and will follow up with PCP within two days. Patient felt better after receiving IV fluid. Ambulatory, steady gait, feels well for discharge home with son at the bedside. - Diagnoses Provider Diagnoses: Dizziness, Viral syndrome Discharge ED - Sign-Out/Discharge Documenting (check all that apply): Patient Departure - discharge - Discharge Plan Condition: Stable Disposition: HOME Patient Education Materials: Viral Syndrome (ED), Dizziness (ED) Referrals: Angelic Salzaar MD [Primary Care Provider] - 2 Days Additional Instructions: PLEASE RETURN TO ED FOR ANY NEW OR CONCERNING SYMPTOMS. PLEASE FOLLOW UP WITH YOUR PRIMARY CARE PHYSICIAN WITHIN TWO DAYS. - Billing Disposition and Condition Condition: STABLE Disposition: Home - Attestation Statements Document Initiated by Cathy: Yes Documenting Scribe: KALE LANDRY Provider For Whom Cathy is Documenting (Include Credential): ALBANIA BRUNNER DO Scribe Attestation: IKALE scribed for ALBANIA BRUNNER DO on 09/02/19 at 1735. Scribe Documentation Reviewed: Yes Provider Attestation: The documentation as recorded by the KALE medrano accurately reflects the service I personally performed and the decisions made by me, ALBANIA BRUNNER DO Status of Scribe Document: Viewed
--- OUTSIDE RECORDS SUMMARY | 2019-09-02 13:31 | XMS REPORT ---
:1965 Author Organization [facility] Address [address] 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, unspecified Problem Family history of Z80.41 Active 126781721 malignant neoplasm of ovary ALLERGIES No Information ENCOUNTERS Encounter Location Date Diagnosis [facility] [address] Oct, OBGYN [place], [place] [id number] [facility] [address] Oct, Pelvic and perineal pain OBGYN [facility], R10.2 and Family history [place] [id number] of malignant neoplasm of ovary Z80.41 [facility] [address] Oct, OBGYN [place] [id number] [facility] [address] Oct, [place]BG[place] [id number] [facility] [address] Oct, [place]BGYN [place] [id number] [place] [facility] [address] Jun, Lichen sclerosus et [address]YN [address] [place], atrophicus L90.0 ; [place] [id number] Dermatitis, unspecified L30.9 and Postmenopausal atrophic vaginitis N95.2 [facility] [address] Jun, OBGYN [place], [place] [id number] [facility] [address] May, [place]BGYN [place] [id number] [place] [facility] [address] [facility] May, Subacute and chronic OBGYN [address] [place], vulvitis N76.3 and Pelvic [place] [id number] and perineal pain R10.2 [facility] [address] May, OBGYN [place], [place] [id number] [place] [facility] [address] [facility] May, Subacute and chronic OBGYN [address] [place], vulvitis N76.3 [place] [id number] [facility] [address] May, OBGYN [place] [id number] [facility] May, OBGYN [place] [id number] [facility] 103 Apr, Family history of OBGYN [facility], malignant neoplasm of [place] [id number] ovary Z80.41 ; Pelvic and perineal pain R10.2 and Subacute and chronic vulvitis N76.3 [facility] Apr, Family history of OBGYN [facility], malignant neoplasm of [place] [id number] ovary Z80.41 and Pelvic and perineal pain R10.2 [facility] [address] Apr, [place]BG[place] [id number] [facility] [address] Apr, [place]BG[place] [id number] [facility] Apr, [place]BGYN [place] [id number] [address] Apr, [facility] [address] [place], gynecological examination [place] [id number] (general) (routine) without abnormal findings Z01.419 ; [...] A60.9 and Pelvic and perineal pain R10.2 [facility] Sep, Postmenopausal atrophic OBGYN [facility], vaginitis N95.2 [place] [id number] [address] Dec, Other specified [facility] [address] [place] [address], noninflammatory disorders [place] [id number] of vagina N89.8 and Acute vaginitis N76.0 [facility] Oct, OBGYN [place] [id number] [facility] Oct, [facility] noninflammatory disorders [place] [id number] of vagina N89.8 ; Acute vaginitis N76.0 and Postmenopausal atrophic vaginitis N95.[address] Jan, [facility] [address] [place], gynecological examination [place] [id number] (general) (routine) without abnormal findings Z01.419 ; Encounter for screening mammogram for malignant neoplasm of breast Z12.31 ; Encounter for screening for malignant neoplasm of colon Z12.11 ; Family history of malignant neoplasm of digestive organs Z80.0 ; Postmenopausal atrophic vaginitis N95.2 and Acute vaginitis N76.0 [facility] Dec, [place] [id number] [facility] Dec, Other [facility] noninflammatory disorders [place] [id number] of vagina N89.8 and Postmenopausal atrophic vaginitis N95.[address] Dec, OBGY [address] [place] [id number] [facility] 103 May, Acute vaginitis N76.0 [place] [id number] [facility] Jan, 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 [address] [place] [address], V72.31 ; SCREEN MALIG [place] [id number] NEOP-COLON V76.51 ; SCREEN MAMMOGRAM NEC V76.12 ; Atrophic vulvovaginitis 627.3 ; FAMILY HX-GI MALIGNANCY V16.0 and Menopausal symptoms 627.2 [facility] Jan, [place] [id number] [facility] Jan, [place] [id number] [facility] 103 Dec, Vaginitis 616.10 [place] [id number] [facility] Dec, Vulvovaginitis 616.10 ; [address] [place] [address], FAMILY HX-GI MALIGNANCY [place] [id number] V16.0 ; STD Screen V74.5 ; PELVIC PAIN 625.9 and Menopausal symptoms 627.2 [facility] Aug, [place] [id number] [facility] Aug, [place] [id number] [facility] 103 Aug, Ovarian cyst NOS 620.2 [place] [id number] [facility] [address] Jul, [place] [id number] [facility] Jul, [place] [id number] [facility] 103 Jul, OBG[place] [id number] [facility] Jun, [place] [id number] [facility] 103 Jun, Ovarian cyst NOS 620.2 and OBGYN [facility], VULVAR LESION 624.9 [place] [id number] IMMUNIZATIONS No Known Immunizations SOCIAL HISTORY Never Assessed REASON FOR REFERRAL FUNCTIONAL STATUS PLAN OF CARE VITAL SIGNS MEDICATIONS Unknown Medications PROCEDURES No Known procedures RESULTS No Results REASON FOR VISIT Annual due after 04/22/19 Insurance Providers [facility] Health Member Patient Patient Patient Patient Patient Subscriber Subscriber Subscriber Group Insurance Plan Plan Plan Plan ID Relationship Address Phone Name Date of ID Name Date of No Type Insurance Insurance Insurance Coverage to Subscriber Address Phone Name Dates Medicaid [id number] Medicaid self Maryal[place] [id number] [facility] 00 [id number] [facility]- [id number] Amrita 0 [employer] [address] [employer] Maryalic [id number] Blue [id number] Blue e 7 Cross/Blue [place] Cross/Blue [facility]- Shield [address] Shield Amrita United [address] United self Maryalic [id number] [facility] [address] [place] [phone] [facility] MEDICAL (GENERAL) HISTORY Type Description Date Medical History HSV Medical History migraines Surgical History ovarian cystectomy 2008 Surgical History ETOP x 2 Surgical History tubal ligation 1995 Hospitalization History see above Hospitalization History childbirth
--- OUTSIDE RECORDS SUMMARY | 2019-09-02 13:31 | XMS REPORT | Summary of Care ---
:1965 Author Organization [facility] Address [address] [facility] [place] [address] Care Team Providers Name Role Phone Kareem Salazar MD Primary Care Provider Reason for Visit Reason Comments Follow Up BP pt states at home 135/80- 125/80 Encounter Details Date Type Department Care Team Description 08/14/2019 Office Visit [facility], Elevated LDL cholesterol level (Primary Dx); Practice Kareem Soler MD Benign hypertension [address] [place] [address] [place] [address] [phone] Allergies Active Allergy Reactions Severity Noted Date Comments Bee Anaphylaxis 08/18/2016 Clindamycin Phosphate Rash 03/13/2016 documented as of this encounter (statuses as of 08/14/2019) Medications Medication Sig Dispensed Refills Start Date End Date Status sumatriptan Inject 0.5 mL 9 Syringe 3 01/21/2016 Active (IMITREX) 6 beneath the MG/0.5ML skin DAILY Subcutaneous NEEDED SolutionIndicatio (Migraine). ns: Migraine without aura and with status migrainosus, not intractable EPINEPHrine 0.3 1 Each by 0 Active MG/0.3ML Injection Injection route Solution NEEDED. Auto-injector valacyclovir Take 1 Tab by 90 Tab 1 03/31/2017 Active (VALTREX) 500 MG mouth DAILY. Oral Tab IBUPROFEN 200 PO Take 400 mg by 0 Active mouth NEEDED. BIOTIN PO EVERY DAY 0 06/02/2019 Active B Complex 1 Tab. 0 06/02/2019 Active Vitamins (VITAMIN B COMPLEX) Oral Tab amLodipine Take 1.5 Tabs 135 Tab 1 08/14/2019 Active (NORVASC) 5 MG by mouth Oral DAILY. TabIndications: Benign hypertension amLodipine Take 1 Tab by 90 Tab 1 06/06/2019 Discontinued (NORVASC) 5 MG mouth DAILY. 0 (Dose Adjustment) Oral TabIndications: Benign hypertension documented as of this encounter (statuses as of 08/14/2019) Active Problems Problem Noted Date Benign hypertension 07/11/2019 Migraine headache 09/15/2007 Allergic Rhinitis 09/15/2007 documented as of this encounter (statuses as of 08/14/2019) Resolved Problems Problem Noted Date Resolved Date Depression 09/15/2007 04/04/2012 Benign neoplasm of colon 09/15/2007 04/04/2012 documented as of this encounter (statuses as of 08/14/2019) Immunizations Name Administration Dates Next Due Hepatitis A Vaccine-Adult 08/15/2018 Influenza (IM) Preservative Free 06/18/2019, 05/17/2017 documented as of this encounter Social History [...] Sign Reading Time Taken Comments Blood Pressure 130/80 08/14/2019 10:22 AM EST Pulse 63 08/14/2019 10:18 AM EST Temperature 36.4 08/14/2019 10:18 AM EST C (97.6 F) Respiratory Rate - - Oxygen Saturation 99% 08/14/2019 10:18 AM EST Inhaled Oxygen Concentration - - Weight 62.1 kg (137 lb) 08/14/2019 10:18 AM EST Height 165.1 cm (5' 5") 08/14/2019 10:18 AM EST Body Mass Index 22.8 08/14/2019 10:18 AM EST documented in this encounter Patient Instructions Patient InstructionsKareem Salazar MD - 08/14/2019 10:00 AM ESTYour BP is running a bit high. Increase amlodipine to 7.5 mg daily (1.5 tabs). Please do fasting laboratory tests in 3 months and see me a week later. Keep up the great work with diet and exercise. If your right lower rib pain continues or worsens, please follow up and we will do xrays then.Electronically signed by Kareem Salazar MD at 2019 10:46 AM EST documented in this encounter Progress Notes Kareem Salazar MD - 08/14/2019 10:00 AM EST Nursing Notes: Rosita Parr LPN 08/14/2019 10:29 AM Signed Chief Complaint Patient presents with Follow Up BP pt states at home 135/80- 125/80 Chief Complaint: Criselda Garza is a 53-y.o. female who presents for hypertension recheck. History of Present Illness/ROS: Patient presents with hypertension. Age at onset of elevated blood pressure: 53 She in on a DASH diet She indicates that she is feeling well and denies any symptoms referable to her elevated blood pressure. Specifically denies chest pain, palpitation, dyspnea, peripheral edema. Current medication regimen is as listed below. Patient has these side effects of medication: NONE. Cardiovascular risk factors: hypertension Use of agents associated with hypertension: none History of renal disease: negative History of flank trauma: negative Home BP 114/65--140/92, averages 135/[facility] Laboratory tests normal, troponin 0.0 Chest xray: NAD EKG: Normal Orders Only on 06/22/2019 Component Date Value Ref Range Status EXERCISE STRESS ECHO W/ TREADMILL 06/22/2019 Final Value:STRESS ECHOCARDIOGRAM REPORT Patient Name: ANA M HAINES Status: Outpatient MR Number: [id number] Age: 53 year(s) : 1965 Gender: Female Exam Date: 06/22/2019 12:03 PM Location: [place] Height: 67 inches Weight: 141 pounds Study Performed: Exercise, Pre scan color flow doppler, Pre-scan P/W and C/W doppler, Exercise Stress Echo w/ Treadmill. Room Number OP BSA: 1.74 m^2 BMI: 22.08 kg/m^2 Ordering KAREEM Provider: TARUN COOPER Referring KAREEM Provider: TARUN COOPER Group Reservations Coordinator: Marisabel Hawk [facility] Interpreting Morteza Physician: Bernard COOPER Interpreting Fellow: Nurse: GERTRUDIS AMATO RN INDICATION FOR STUDY: Chest pain. Technical Quality: Adequate visualization Contrast Medium: Definity. Amount - 1.5 ml FINAL IMPRESSION: Exercise tolerance of the patient is excellent. Appropriate heart rate and blood pressure response to exercise. This test is negative for ischemia by symptoms, EKG and echocardiographic imaging. Probability for significant, obstructive coronary artery disease is low by this test. Possible pleural effusions. Consider additional evaluation with chest xray if clinically indicated. OBSERVATIONS & FINDINGS: Using 2d (3d if applicable), M-mode, Colorflow, Continuous wave doppler and Pulse wave doppler interrogation Rest ECG Normal sinus rhythm. No baseline ST segment or T wave abnormalities. Supine HR:73 bpmSupine BP:120/80 mmHg Baseline Echocardiogram: Limited resting echocardiographic evaluation as part of Stress Echo testing. Normal left heart size with normal LV systolic function and no regional wall motion abnormalities; and estimated LVEF 60-65%. Normal right heart size and RV contractility. No structurally or hemodynamically significant valvular disease on limited imaging. No pericardial effusion. There appears to be bilateral pleural effusions, although imaging is limited and this is a questionable finding. Consider chest xray for further evaluation if clinically indicated. Definity imaging enhancer used because at least two contiguous endocardial borders are not well defined. 1.5cc's of Definity administered via IV with no waste on 06-22-19 at 12:30 pm (Lot # [id number] ) ([facility] # [id number]). Stress Type: Exercise Stress Protocol: Exercise - Peak HR: 171 bpm HR Response: Normal Peak BP: 136/76 mmHg BP Response: Normal Predicted HR: 165 bpm HR BP Product: 48502 % of predicted HR: 104 Max Exercise: 17.2 METS Test Duration: 13.45 min Stress EF: 85 % Reason for Termination: Target heart rate Exercise Effort: Excellent Results Global LVEF (rest): Normal (LVEF >50%) Global LVEF (stress): Hyperkinetic (LVEF >70%) ECG No ST segment abnormalities suggestive of myocardial ischemia or injury. Arrhythmias No arrhythmias noted. Symptoms No chest pain or shortness of breath with maximum exercise. Stress Echo Findings: Post exercise, the LV cavity is smaller and peak LVEF is 80-85%. There is appropriate augmentation of contractility of all myocardial segments. No new exercise induced wall motion abnormalities are noted. Measurements & Calculations: M-Mode / 2D Measurements Value Normal Value Normal Diastolic Parameters: MV Peak E-Wave: 57.2 cm/s E/A Ratio: 0.82 MV Peak A-Wave: 69.8 cm/s Doppler Measurements & Calculations: Mitral: Aortic: Valve Area (P-1/2-time)1.96 LVOT VTI: 25.9 cm MV Peak E-Wave: 57.2 cm/s AV Peak Velocity: 132 cm/s MV Peak A-Wave: 69.8 cm/s AV Mean Velocity: 89.3 cm/s MV E/A Ratio: 0.82 % AV Peak Gradient: 6.97 mmHg MV Peak Gradient: 1.31 mmHg AV Mean Gradient: 4 mmHg MV P1/2t: 112 msec Pulmonic: PV Peak Velocity: 96.2 cm/s PV Peak Gradient: 3.7 mmHg Signature AV Mean Gradient 06/22/2019 4 mmHg Final Lab Results Component Value Date NA 141 06/07/2019 K 4.6 06/07/2019 CL 103 06/07/2019 CO2 27 06/07/2019 GLUCOSE 97 06/07/2019 BUN 14 06/07/2019 CREATININE 0.7 06/07/2019 CALCIUM 9.7 06/07/2019 TP 8.0 06/07/2019 ALBUMIN 4.5 06/07/2019 AST 35 06/07/2019 ALT 31 06/07/2019 ALK 83 06/07/2019 TBILI 0.7 06/07/2019 EGFR >60 06/07/2019 Lab Results Component Value Date CHOL 194 06/07/2019 TRIG 98 06/07/2019 HDL 46 (L) 06/07/2019 LDL 128 (H) 06/07/2019 LDLHDLRATIO 2.8 06/07/2019 CHOLHDLRATIO 4.2 06/07/2019 Review of Systems - History obtained from the patient General ROS: negative for - chills or fever, unexpected weight changes ENT ROS: negative for - headaches, nasal congestion, nasal discharge, sinus pain , sore throat or visual changes Respiratory ROS: negative for - cough, hemoptysis or shortness of breath Cardiovascular ROS: negative for - chest pain, dyspnea on exertion, edema or palpitations Gastrointestinal ROS: no abdominal pain, change in bowel habits, or black or bloody stools, rare right lower chest pain, GB area. Not diet related. Some yoga positions hurt right upper quadrant and radiate to right shoulder. Chiropractor is doing adjustments. Genito-Urinary ROS: no dysuria, trouble voiding, or hematuria Neuro: denies headache, focal weakness, numbness Psych: Denies depression Past Medical History: Diagnosis Date Allergic Rhinitis 09/15/2007 Benign neoplasm of colon 09/15/2007 Depression 09/15/2007 Herpes genitalia controlled with valtrex Migraine Headache 09/15/2007 Postmenopausal Past Surgical History: Procedure Laterality Date OPERATION ON EYEBALL NEC [place] surgery [place] LIGATE FALL[place] TUBE 1995 [place] REMOVAL OF TONSILS,12+ Y/O 1976 Current Outpatient Medications: amLodipine (NORVASC) 5 MG Oral Tab, Take 1.5 Tabs by mouth DAILY., Disp : 135 Tab, Rfl: 1 B Complex Vitamins (VITAMIN B COMPLEX) Oral Tab, 1 Tab., Disp: , Rfl: BIOTIN PO, EVERY DAY, Disp: , Rfl: EPINEPHrine 0.3 MG/0.3ML Injection Solution Auto-injector, 1 Each by Injection route NEEDED., Disp: , Rfl: IBUPROFEN 200 PO, Take 400 mg by mouth NEEDED., Disp: , Rfl: sumatriptan (IMITREX) 6 MG/0.5ML Subcutaneous Solution, Inject 0.5 mL beneath the skin DAILYAS NEEDED (Migraine)., Disp: 9 Syringe, Rfl: 3 valacyclovir (VALTREX) 500 MG Oral Tab, Take 1 Tab by mouth DAILY., Disp : 90 Tab, Rfl: 1 Allergies Allergen Reactions Bee Anaphylaxis Clindamycin Phosphate Rash Social History Socioeconomic History Marital status: Spouse name: Not on file Number of children: Not on file Years of education: Not on file Highest education level: Not on file Occupational History Not on file Social Needs Financial resource strain: Not on file Food insecurity Worry: Not on file Inability: Not on file Transportation needs Medical: Not on file Non-medical: Not on file Tobacco Use Smoking status: Never Smoker Smokeless tobacco: Never Used Substance and Sexual Activity Alcohol use: Yes Alcohol/week: 1.0 standard drinks Types: 1 Glasses of wine per week Comment: socially Drug use: No Sexual activity: Yes Partners: Male control/protection: Surgical Lifestyle Physical activity Days per week: Not on file Minutes per session: Not on file Stress: Not on file Relationships Social connections Talks on phone: Not on file Gets together: Not on file Attends nondenominational service: Not on file Active member of club or organization: Not on file Attends meetings of clubs or organizations: Not on file Relationship status: Not on file Intimate partner violence Fear of current or ex partner: Not [...] Pets: 2 dogs/ 4 cats. No birds. Family History Problem Relation Age of Onset Diabetes Mother Cancer Mother thyroid CA in mother/ maternal aunts/ maternal grandmother. High Cholesterol Mother Hypertension Mother Thyroid Disease Mother Clarita Kidney Mother polycystic kidney, right kidney removed, benign tumors Heart Maternal Grandfather age 52 Heart Paternal Grandfather age 55 Ovarian Cancer Maternal Aunt Thyroid Disease Maternal Aunt clarita Ovarian Cancer Maternal Grandmother Thyroid Disease Maternal Grandmother clarita Cancer Father mesothelioma No Known Problems Sister No Known Problems Brother Thyroid Disease Daughter Clarita Hypertension Sister No Known Problems Son PHYSICAL EXAMINATION: BP 130/80 | Pulse 63 | Temp 97.6 F (36.4 C) | Ht 5' 5" (1.651 m) | Wt 137 lb (62.1 kg) | LMP 12/03/2013 | SpO2 99% | BMI 22.80 kg/m Physical Examination: General appearance - alert, well appearing, and in no distress Mental status - alert, oriented to person, place, and time, normal mood, behavior, speech, dress, motor activity, and thought processes Eyes - pupils equal and reactive, extraocular eye movements intact, sclera anicteric Ears - bilateral TM's and external ear canals normal Neck - supple, no cervical or supraclavicular adenopathy, carotids upstroke normal bilaterally, no bruits, thyroid exam: thyroid is normal in size without nodules or tenderness, no neck masses palpated. Chest/Lungs - clear to auscultation, no wheezes, rales or rhonchi, symmetric air entry, good aeration Heart - normal rate, regular rhythm, normal S1, S2, no murmurs, rubs, clicks or gallops Abdomen - soft, non tender on palpation, nondistended, no masses or hepatosplenomegaly, bowel soundsnormal, normal to percussion, no guarding or rebound. No costervertebral angle tenderness Neurological - alert, oriented, normal speech, no gross focal findings or movement disorder noted Extremities - dorsalis pedis pulses normal, no pedal edema, no clubbing or cyanosis ASSESSMENT/PLAN: ICD-9-CM ICD-10-CM 1. Elevated LDL cholesterol level 272.0 E78.00 LIPID PROFILE 2. Benign hypertension 401.1 I10 amLodipine (NORVASC) 5 MG Oral Tab COMPREHENSIVE METABOLIC PANEL LIPID PROFILE Patient Instructions Your BP is running a bit high. Increase amlodipine to 7.5 mg daily (1.5 tabs). Please do fasting laboratory tests in 3 months and see me a week later. Keep up the great work with diet and exercise. If your right lower rib pain continues or worsens, please follow up and we will do xrays then. Author: Kareem [place] MD 08/14/2019 10:46 documented in this encounter Plan of Treatment Name Type Priority Associated Diagnoses Order Schedule COMPREHENSIVE METABOLIC Lab Routine Benign hypertension Expected: 2019 PANEL (Approximate), Expires: 08/14/2020 LIPID PROFILE Lab Routine Benign hypertension Expected: 11/12/2019 Elevated LDL cholesterol (Approximate), level Expires: 08/14/2020 Health Maintenance Due Date Last Done Comments PNEUMOCOCCAL 0-64 YRS (1 of 09/30/1969 1 - PPSV23) DTaP/Tdap/Td Vaccines (1 - 09/30/1974 Tdap) ZOSTER IMMUNIZATION SERIES 09/30/2013 (1 of 2) DEPRESSION SCREENING 12/10/2019 12/09/2018 LIPID DISORDER SCREENING 06/07/2020 06/07/2019, 06/06/2018, 10/13/2017, Additional history exists MAMMOGRAM (SCREENING) 02/06/2021 02/06/2019, 07/03/2016, 12/13/2013, Additional history exists Colonoscopy 08/18/2025 08/18/2016, 11/09/2013 HEPATITIS A IMMUNIZATION Aged Out 08/15/2018 No longer eligible SERIES based on patient's age to complete this topic HPV IMMUNIZATION SERIES Aged Out No longer eligible based on patient's age to complete this topic MENINGOCOCCAL VACCINE IMM Aged Out No longer eligible based on patient's age to complete this topic documented as of this encounter Goals Goal Patient Goal Associated Recent Patient-Stated? Author Type Problems Progress Blood Pressure Blood 130/80 No [place], < 140/90 Pressure (08/14/2019 Kareem Soler, 10:22 AM EST) Note: This is an individualized treatment (blood pressure) goal for Criselda TangMaude Amrita: Displayed above (on the left) is your goal for blood pressure control. Your most recent blood pressure is also shown above, on the right. You should try to achieve blood pressures that are lower than your goal listed above (on the left). Take all prescribed medications as Self-management Kareem Mcintosh MD directed Note: This is an individualized self-management goal for Criselda Garza: Please take all prescribed medications as directed. 1. Do not skip doses. If you cannot afford your medications, talk with your doctor. 2. Use a pill reminder system such as a pill box if needed. Your pharmacist can help you with this. 3. Contact your Pharmacy 5 days before your medication runs out. If you cannot take your medications for any reasons, talk with your doctor. 4. Please bring all of your medication bottles and inhalers (or a list of all your medications/inhalers) with you to every visit. Potential barriers to meeting all of your care plan goals will continue to be addressed on an ongoing basis. documented as of this encounter Results Not on filedocumented in this encounter Visit Diagnoses Diagnosis Benign hypertension Essential hypertension, benign Elevated LDL cholesterol level Pure hypercholesterolemia documented in this encounter Insurance Payer Benefit Plan / Subscriber ID Effective Dates Phone Address Type Group [facility] xxxxxxxxxxxx 2014-Present [employer] [place] xxxxxxxx 2016-Present Medicaid [place] Guarantor Name Account Type Relation to Date of Phone Billing Address Patient HemaFlowertorMitzi Personal/Famil 1965 [address] [phone] [place], [place] (Work) [id number] documented as of this encounter
--- OUTSIDE RECORDS SUMMARY | 2019-09-02 13:31 | XMS REPORT | Summary of Care ---
:1965 Author Organization [facility] Address [address] [facility] [place] [address] Care Team Providers Name Role Phone Kareem [place] MD Primary Care Provider Reason for Visit Reason Comments Hypertension Encounter Details Date Type Department Care Team Description 08/14/2019 Office Visit [facility] [place], Benign hypertension Practice Kareem Soler MD (Primary Dx) [address] [place] [address] [place] [address] [phone] Allergies Active Allergy Reactions Severity Noted Date [...] (VITAMIN B COMPLEX) Oral Tab amLodipine Take 1 Tab by 90 Tab [...] of this encounter Last Filed Vital Signs Not on filedocumented in this encounter Progress Notes Kareem [place] MD - 08/14/2019 9:40 AM EST There are no exam notes on file for this visit. DUPLICATE APPOINTMENT ENCOUNTER, SEE OTHER ENCOUNTER SAME DAY Chief Complaint: Criselda Garza is a 53-y.o. [...] BP 114/65--140/92, averages 135/80 ER evaluation at [facility] ER 06/02/19 Laboratory tests normal, troponin 0.0 Chest xray: NAD EKG: Normal Orders Only on 06/22/2019 Component Date Value Ref Range Status EXERCISE STRESS ECHO W/ TREADMILL 06/22/2019 Final Value:STRESS ECHOCARDIOGRAM REPORT Patient Name: ANA M HAINES Status: Outpatient MR Number: [id number] Age: 53 year(s) : 1965 Gender: Female Exam Date: 06/22/2019 12:03 PM Location: [place] Height: 67 inches Weight: 141 pounds Study Performed: Exercise, Pre scan color flow doppler, Pre-scan P/W and C/W doppler, Exercise Stress Echo w/ Treadmill. Room Number OP BSA: 1.74 m^2 BMI: 22.08 kg/m^2 Ordering KAREEM Provider: TARUN COOPER Referring KAREEM Provider: TARUN COOPER Amortization Clerk: Marisabel Hawk [facility] Interpreting Morteza Physician: Bernard COOPER Interpreting Fellow: [...] at 12:30 pm (Lot # [id number] ) ([facility] # [id number]). Stress Type: Exercise Stress Protocol: Exercise - Peak HR: 171 bpm HR Response: Normal Peak BP: 136/76 mmHg BP Response: Normal Predicted HR: 165 bpm HR BP Product: 19191 % of predicted HR: 104 Max Exercise: [...] Date OPERATION ON EYEBALL NEC Lasik surgery CT LIGATE FALLOPIAN TUBE [address] REMOVAL OF TONSILS,12+ Y/O 1976 Current Outpatient [...] file Gets together: Not on file Attends mu-ism service: Not on file Active member of [...] Sister No Known Problems Son PHYSICAL EXAMINATION: LMP 12/03/2013 Physical Examination: General appearance - alert, well [...] pedal edema, no clubbing or cyanosis ASSESSMENT/PLAN: No diagnosis found. There are no Patient Instructions on file for this visit. Author: Kareem [place] MD 08/14/2019 10:47 documented in this encounter Plan of Treatment Date Type Specialty Care Team Description 11/06/2019 Lab Internal Medicine 11/13/2019 Office Visit Family Practice Kareem Salazar MD [address] [place] [address] [phone] Health Maintenance Due Date Last Done Comments [...] individualized treatment (blood pressure) goal for Criselda HemamatMaude Amrita: Displayed above (on the left) is your goal for blood pressure control. Your most recent blood pressure is also shown above, on the right. You should try to achieve blood pressures that are lower than your goal listed above (on the left). Take all prescribed medications as Self-management No Kareem [place] MD directed Note: This is an individualized [...] Diagnoses Diagnosis Benign hypertension Essential hypertension, benign documented in this encounter Insurance Payer Benefit Plan / Subscriber ID Effective Dates Phone Address Type Group [facility] xxxxxxxxxxxx 2014-Present [employer] [place] xxxxxxxx 2016-Present Medicaid [place] Guarantor Name Account Type Relation to Date of Phone Billing Address Patient ClydeMaudeAmritaMitzi Personal/Famil 1965 [address] [phone] [place], [place] (Work) [id number] documented as of this encounter
--- OUTSIDE RECORDS SUMMARY | 2019-09-02 13:31 | XMS REPORT | Summary of Care ---
:1965 Author Organization [facility] Address [address] [facility] [place] [address] Care Team Providers Name Role Phone Angelic Salazar MD Primary Care Provider Reason for Visit Reason Comments Cough chest congestion, last two weeks sx of sinuitis, post nasl drip, pressure in sinuses, afebrile, yellow/greenish phlegm, Encounter Details Date Type Department Care Team Description 07/11/2019 Office Visit Hailey Salazar, Acute non-recurrent sinusitis, unspecified location (Primary Dx); Practice Angelic Soler MD Benign hypertension [address] [facility] [place] [address] [place] [address] [phone] Allergies Active Allergy Reactions Severity Noted Date Comments Bee Anaphylaxis 08/18/2016 Clindamycin Phosphate Rash 03/13/2016 documented as of this encounter (statuses as of 07/11/2019) Medications Medication Sig Dispensed Refills Start Date End Date Status sumatriptan Inject 0.5 mL 9 Syringe 3 01/21/2016 Active (IMITREX) 6 beneath the MG/0.5ML skin DAILY Subcutaneous NEEDED SolutionIndicatio (Migraine). ns: Migraine without aura and with status migrainosus, not intractable EPINEPHrine 0.3 1 Each by 0 Active MG/0.3ML Injection route Injection NEEDED. Solution Auto-injector valacyclovir Take 1 Tab by 90 Tab 1 03/31/2017 Active (VALTREX) 500 MG mouth DAILY. Oral Tab IBUPROFEN 200 PO Take 400 mg by 0 Active mouth NEEDED. amLodipine Take 1 Tab by 90 Tab 1 06/06/2019 Active (NORVASC) 5 MG mouth DAILY. Oral TabIndications: Benign hypertension BIOTIN PO EVERY DAY 0 06/02/2019 Active B Complex 1 Tab. 0 06/02/2019 Active Vitamins (VITAMIN B COMPLEX) Oral Tab amoxicillin-clavu Take 1 Tab by 10 Tab 1 07/11/2019 Active lanic acid mouth TWICE 0 (AUGMENTIN 875 DAILY for 5 MG) 875-125 MG days. Oral TabIndications: Acute non-recurrent sinusitis, unspecified location albuterol HFA Take 2 Puffs by 1 Inhaler 5 10/07/2018 Discontinued (VENTOLIN) 108 inhalation 9 (Therapy (90 Base) MCG/ACT EVERY FOUR Completed) Inhalation Aero HOURS NEEDED Soln (short of breath). documented as of this encounter (statuses as of 07/11/2019) Active Problems Problem Noted Date Benign hypertension 07/11/2019 Migraine headache 09/15/2007 Allergic Rhinitis 09/15/2007 documented as of this encounter (statuses as of 07/11/2019) Resolved Problems Problem Noted Date Resolved Date Depression 09/15/2007 04/04/2012 Benign neoplasm of colon 09/15/2007 04/04/2012 documented as of this encounter (statuses as of 07/11/2019) Immunizations Name Administration Dates Next Due Hepatitis [...] Sign Reading Time Taken Comments Blood Pressure 132/76 07/11/2019 10:26 AM EST Pulse 78 07/11/2019 10:26 AM EST Temperature 36.9 07/11/2019 10:26 AM EST C (98.4 F) Respiratory Rate 20 07/11/2019 10:26 AM EST Oxygen Saturation 99% 07/11/2019 10:26 AM EST Inhaled Oxygen Concentration - - Weight 63.1 kg (139 lb 3.2 oz) 07/11/2019 10:26 AM EST Height 170.2 cm (5' 7") 07/11/2019 10:26 AM EST Body Mass Index 21.8 07/11/2019 10:26 AM EST documented in this encounter Patient Instructions Patient InstructionsAngelic Salazar MD - 07/11/2019 10:20 AM ESTRest, drink plenty of fluids. Return if worsening, or if not better in 7-01 days. Take your antibiotic with food You have been prescribed an antibiotic for treatment of your condition. It is important to rememberthat antibiotics treat bacterial infections, not viral infections. In order for them to be effective - you must take ALL of the medication and take it exactly as prescribed. FINISH THE MEDICATION - even if you are feeling better. Antibiotics can cause stomach upset and diarrhea, and increase the risk of C. Difficile Colitis. You can help decrease these symptoms/risks by taking a probiotic while using the medication (Align, Culturelle for example). Take your antibiotic with food unless otherwise recommended by the pharmacist. documented in this encounter Progress Notes Angelic Salazar MD - 07/11/2019 10:20 AM EST PATIENT: Criselda aGrza : 1965 DATE OF SERVICE: 07/11/2019 CHIEF COMPLAINT: Chief Complaint Patient presents with Cough chest congestion, last two weeks sx of sinuitis, post nasl drip, pressure in sinuses, afebrile, yellow/greenish phlegm, Subjective HISTORY OF PRESENT ILLNESS: Criselda Garza is a 53-y.o. female. Patient presents today with cough and congestion Nursing Notes: Jia Treviño LPN 07/11/2019 10:29 AM Sign at exiting of workspace Chief Complaint Patient presents with Cough chest congestion, last two weeks sx of sinuitis, post nasl drip, pressure in sinuses, afebrile, yellow/greenish phlegm, URI The history is provided by the patient. This is a new problem. The current episode started 1 to 4 weeks ago. The problem has been gradually worsening. There has been no fever (has had chills). Associated symptoms include congestion , ear pain, headaches, plugged ear sensation, rhinorrhea, sinus pain, sore throat and cough. Pertinent negatives include no chest pain, no diarrhea, no nausea, no vomiting,no rash and no wheezing. Associated symptoms comments: Jaw pain, right neck pressure, right ear pressure. Yellow nasal drainage to green. She has tried nothing for the symptoms. Past Medical History: Diagnosis Date Allergic Rhinitis [...] Problems Son Current Outpatient Medications Medication Sig amLodipine (NORVASC) 5 MG Oral Tab Take 1 Tab by mouth DAILY. amoxicillin-clavulanic acid (AUGMENTIN 875 MG) 875-125 MG Oral Tab Take 1 Tab by mouth TWICE DAILY for 5 days. B Complex Vitamins (VITAMIN B COMPLEX) Oral Tab 1 Tab. BIOTIN PO EVERY DAY EPINEPHrine 0.3 MG/0.3ML Injection Solution Auto-injector 1 [...] file Gets together: Not on file Attends yazidism service: Not on file Active member of [...] Pets: 2 dogs/ 4 cats. No birds. REVIEW OF SYSTEMS: Review of Systems Constitutional: Positive for chills and malaise/fatigue. Negative for fever. HENT: Positive for congestion, ear pain, rhinorrhea, sinus pain and sore throat. Negative for ear discharge and nosebleeds. Eyes: Negative for redness. Respiratory: Positive for cough and sputum production. Negative for hemoptysis, shortness of breath,wheezing and stridor. Cardiovascular: Negative for chest pain, palpitations and leg swelling. Gastrointestinal: Negative for diarrhea, nausea and vomiting. Skin: Negative for rash. Neurological: Positive for headaches. Negative for weakness. Objective PHYSICAL EXAM: VITALS: BP 132/76 (BP Location: Left arm, Patient Position: Sitting) | Pulse 78 | Temp 98.4 F(36.9 C) (Tympanic) | Resp 20 | Ht 5' 7" (1.702 m) | Wt 139 lb 3.2 oz (63.1 kg) | LMP 12/03/2013 | SpO2 99% | BMI 21.80 kg/m Body mass index is 21.8 kg/m. Physical Exam Constitutional: Appearance: She is well-developed. HENT: Head: Normocephalic and atraumatic. Right Ear: External ear normal. Left Ear: External ear normal. Nose: Congestion and rhinorrhea present. Mouth/Throat: Pharynx: Posterior oropharyngeal erythema present. No oropharyngeal exudate. Eyes: Conjunctiva/sclera: Conjunctivae normal. Pupils: Pupils are equal, round, and reactive to light. Neck: Musculoskeletal: Normal range of motion and neck supple. No neck rigidity or muscular tenderness. Thyroid: No thyromegaly. Cardiovascular: Rate and Rhythm: Normal rate and regular rhythm. Heart sounds: Normal heart sounds. Pulmonary: Effort: Pulmonary effort is normal. Breath sounds: Normal breath sounds. No wheezing or rales. Abdominal: General: Bowel sounds are normal. There is no distension. Palpations: Abdomen is soft. There is no mass. Tenderness: There is no abdominal tenderness. There is no guarding or rebound. Lymphadenopathy: Cervical: Cervical adenopathy present. Skin: General: Skin is warm and dry. Neurological: Mental Status: She is alert and oriented to person, place, and time. Coordination: Coordination normal. Psychiatric: Behavior: Behavior normal. Thought Content: Thought content normal. Judgment: Judgment normal. ASSESSMENT / IMPRESSION: ICD-9-CM ICD-10-CM 1. Acute non-recurrent sinusitis, unspecified location 461.9 J01.90 amoxicillin- clavulanic acid (AUGMENTIN 875 MG) 875-125 MG Oral Tab 2. Benign hypertension 401.1 I10 Sinusitis: Start Augmentin Hypertension is controlled on current medications. Plan Patient Instructions Rest, drink plenty of fluids. Return if worsening, or if not better in 7-01 days. Take your antibiotic with food You have been prescribed an antibiotic for treatment of your condition. It is important to rememberthat antibiotics treat bacterial infections, not viral infections. In order for them to be effective - you must take ALL of the medication and take it exactly as prescribed. FINISH THE MEDICATION - even if you are feeling better. Antibiotics can cause stomach upset and diarrhea, and increase the risk of C. Difficile Colitis. You can help decrease these symptoms/risks by taking a probiotic while using the medication (Align, Culturelle for example). Take your antibiotic with food unless otherwise recommended by the pharmacist. Author: Angelic Salazar MD 07/11/2019 13:07 documented in this encounter Plan of Treatment Date Type Specialty Care Team Description 08/14/2019 Office Visit Family Practice Angelic Salazar MD [address] [place] [address] [phone] Health Maintenance Due Date Last Done Comments PNEUMOCOCCAL 0-64 YRS (1 of 09/30/1969 1 - PPSV23) DTaP/Tdap/Td Vaccines (1 - 09/30/1974 Tdap) ZOSTER IMMUNIZATION SERIES 09/30/2013 (1 of 2) DEPRESSION SCREENING 12/10/2019 12/09/2018 MAMMOGRAM (SCREENING) 02/06/2021 02/06/2019, 07/03/2016, 12/13/2013, Additional history exists LIPID DISORDER SCREENING 06/07/2024 06/07/2019, 06/06/2018, 10/13/2017, Additional history exists Colonoscopy 08/18/2025 08/18/2016, 11/09/2013 [...] filedocumented in this encounter Visit Diagnoses Diagnosis Acute non-recurrent sinusitis, unspecified location Benign hypertension Essential hypertension, benign documented in this encounter Insurance Payer Benefit Plan / Subscriber ID Effective Dates Phone Address Type Group [facility] xxxxxxxxxxxx 2014-Present [employer] [place] xxxxxxxx 2016-Present Medicaid [place] Guarantor Name Account Type Relation to Date of Phone Billing Address Patient Mitzi Garza Personal/Famil 1965 [address]) [address] [phone] [place] (Work) [id number] documented as of this encounter
[2019-09-02 13:41] LABS: ABS Eosinophils 0.1 10^3/ul (0-0.6); ABS Lymphocytes 2.4 10^3/ul (1.0-4.8); ABS Monocytes 0.6 10^3/ul (0-0.8); ABS Neutrophils 4.4 10^3/ul (1.5-7.7); Eosinophil % 1.7 %; Hematocrit 40 % (35-47); Hemoglobin 13.2 g/dL (12.0-16.0); Mean Corpuscular HGB Conc 33 g/dL (31-36); Mean Corpuscular Hemoglobin 30 pg (27-31); Mean Corpuscular Volume 91 fL (80-97); Mean Platelet Volume 7.4 fL (7.4-10.4); Nucleated Red Blood Cells % 0.1; Platelet Count 226 10^3/uL (150-450); Red Blood Count 4.38 10^6 /uL (3.70-4.87); Red Cell Distribution Width 14 % (10-15); White Blood Count 7.6 10^3/uL (3.5-10.8)
[2019-09-02 14:00] LABS: Urine Appearance Clear; Urine Bilirubin Negative (Negative); Urine Blood Negative (Negative); Urine Color Colorless; Urine Glucose Negative (Negative); Urine Ketones Negative (Negative); Urine Nitrite Negative (Negative); Urine Protein Negative (Negative); Urine Specific Gravity 1.003 (1.010-1.030); Urine Urobilinogen Negative (Negative)
[2019-09-02 14:12] LABS: Albumin 4.2 g/dL (3.2-5.2); Calcium 8.9 mg/dL (8.6-10.3); Total Bilirubin 0.5 mg/dL (0.2-1.0)
[2019-09-02 14:19] LABS: Albumin/Globulin Ratio 1.6 (1-3); BUN/Creatinine Ratio 21.7 (8-20); EGFR African American 106.9 (>60); EGFR Non-African American 88.3 (>60); Globulin 2.6 g/dL (2-4); Total Protein 6.8 g/dL (6.4-8.9)
[2019-09-02 14:20] LABS: Potassium 4.5 mmol/L (3.5-5.0)
[2019-09-02 15:34] LABS: Influenza A Molecular Negative (Negative); Influenza B Molecular Negative (Negative)
[2019-09-02 17:18] VITALS: BP 119/82
== END 2019-09-02 17:17 | disposition home or self-care (01) ==
LOC: ED 12:56
DX: B34.9 Viral infection, unspecified (principal); Z98.51 Tubal ligation status; Z79.899 Other long term (current) drug therapy; Z88.1 Allergy status to other antibiotic agents
CPT/HCPCS: 36415; 80053; 81003; 84484; 85025; 93005; 96361; 96374; 99284; J2405

== ENCOUNTER 2023-06-17 16:07 | Inpatient (IN) ==
[2023-06-17 17:44] LABS: Urine Appearance Cloudy; Urine Bilirubin Negative (Negative); Urine Blood Negative (Negative); Urine Color Yellow; Urine Glucose Negative (Negative); Urine Ketones Negative (Negative); Urine Nitrite Negative (Negative); Urine Protein Negative (Negative); Urine Specific Gravity 1.014 (1.002-1.030); Urine Urobilinogen Negative (Negative)
[2023-06-17 18:04] LABS: Urine Bacteria Absent (Absent); Urine Red Blood Cell 1+(3-5/hpf) (Absent); Urine Squamous Epithelial Cell Present (Absent); Urine White Blood Cell Trace(0-5/hpf) (Absent)
[2023-06-17 18:05] LABS: Urine Benzodiazepine Screen Presumptive Positive (None Detect); Urine Cannabinoids Screen None Detected (None Detect); Urine Opiates Screen None Detected (None Detect)
[2023-06-17 20:39] LABS: ABS Basophils 0.1 10^3/uL (0.0-0.1); ABS Eosinophils 0.1 10^3/uL (0.0-0.5); ABS Lymphocytes 2.2 10^3/uL (1.0-4.8); ABS Monocytes 0.7 10^3/uL (0.0-0.9); ABS Neutrophils 6.1 10^3/uL (1.5-7.6); ABS Nucleated RBC 0.01 10^3/ul; Eosinophil % 0.8 %; Hematocrit 42.6 % (35-45); Hemoglobin 14.6 g/dL (11.5-14.3); Lymphocyte % 24.2 %; Mean Corpuscular Hgb Conc 34.2 g/dL (31-36); Mean Corpuscular Volume 87.6 fL (80-97); Mean Platelet Volume 7.3 fL (7.5-11.2); Nucleated Red Blood Cells % 0.1 %/100WBC (0.0-0.8); Platelet Count 240 10^3/uL (150-450); Red Blood Count 4.86 10^6/uL (3.63-4.92); Red Cell Distribution Width 13.2 % (12-17)
[2023-06-17 20:56] LABS: ALT 18 U/L (7-52); AST 37 U/L (13-39); Albumin 4.4 g/dL (3.2-5.2); Albumin/Globulin Ratio 1.5 (1-3); Alkaline Phosphatase 83 U/L (35-149); Anion Gap 5 mmol/L (2-16); Blood Urea Nitrogen 17 mg/dL (6-24); CO2 Carbon Dioxide 29 mmol/L (22-32); Calcium 9.6 mg/dL (8.6-10.3); Chloride 105 mmol/L (101-111); Creatinine, Serum 0.78 mg/dL (0.51-0.95); Glucose 107 mg/dL (70-100); Potassium 4.1 mmol/L (3.5-5.0); Sodium 139 mmol/L (135-145); Total Bilirubin 0.6 mg/dL (0.2-1.0); Total Protein 7.4 g/dL (6.4-8.9); eGFR CKD-EPI 87.4 (>60)
[2023-06-17 21:14] LABS: Acetaminophen < 15 mcg/mL; Alcohol, S < 13 mg/dL (<13); Salicylate < 2.50 mg/dL (<30)
[2023-06-17 21:29] LABS: TSH Ultra Thyroid Stim Horm 9.23 mcIU/mL (0.34-5.60)
[2023-06-18 08:23] LABS: HDL Cholesterol 45.2 mg/dL
[2023-06-18] MEDS: Vitamin THERAPEUTIC TAB PO SCH (09:06)
[2023-06-19] MEDS: Vitamin THERAPEUTIC TAB PO SCH (08:04)
[2023-06-19] MEDS: Al Hydrox/Mg Hydrox/Simet LIQ 30 ML UDC PO PRN (08:58)
[2023-06-19 11:05] VITALS: BP 102/68
[2023-06-20] MEDS: Vitamin THERAPEUTIC TAB PO SCH (08:44)
[2023-06-20] MEDS: Al Hydrox/Mg Hydrox/Simet LIQ 30 ML UDC PO PRN (18:01)
[2023-06-21] MEDS: Vitamin THERAPEUTIC TAB PO SCH (09:13)
== END 2023-06-21 10:07 | disposition home or self-care (01) | DRG 752 ==
LOC: ED 16:07 → BSU 21:55 → EDHOLD 22:35 → BSU 22:44
PROVIDERS: ADMIT Psychiatry & Neurology Psychiatry; ATTEND Student in an Organized Health Care Education/Training Program